=== PATIENT | male | born 1945 | race Hispanic/Latino ===

== ENCOUNTER 2018-09-03 09:55 | Inpatient (IN) | payer MEDICARE ==
[2018-09-03 09:55] VITALS: BMI 26.4
[2018-09-03] MEDS ORDERED: Sodium Chloride 0.9% 1,000 ML IV ONE (10:40)
[2018-09-03] MEDS ORDERED: Piperacillin/Tazobact 3.375 gm 100 ML IV STA (10:54)
[2018-09-03] MEDS ORDERED: Vancomycin 1 GM 1 GM/250 ML BAG IV SCH ×2 (11:00→13:00)
--- NOTE | 2018-09-03 11:01 | C.PDOC ---
History Of Present Illness 73 y/o male with PMHx of HTN, Hep C, alcohol abuse, acute NE, CVA in 2013, presents to the ED with complaint of generalized weakness. Neighbor at bedside states he checks on patient routinely, and today perceived patient to be doing worse so decided to bring him to the ED. Of note, patient has history of CVA with residual right-sided weakness. Patient denies any new focal weakness, numbness, visual changes, or slurred speech. On arrival patient noted to be edematous throughout. He admits to being noncompliant with medications. Otherwise he denies any fevers, cough, chest pain, SOB, dizziness, or syncope/fall. Time Seen by Provider: 09/03/18 10:30 Chief Complaint (Nursing): Weakness/Neurological Deficit History Per: Patient History/Exam Limitations: no limitations Onset/Duration Of Symptoms: Days Current Symptoms Are (Timing): Still Present Past Medical History Reviewed: Historical Data, Nursing Documentation, Vital Signs Vital Signs: Last Vital Signs Temp 98.3 F 09/03/18 10:29 Pulse 124 H 09/03/18 10:29 Resp 11 L 09/03/18 10:29 BP 119/85 09/03/18 10:18 Pulse Ox 98 09/03/18 10:29 - Medical History PMH: Anxiety, CVA, Diabetes (?), Fractures, Hepatitis (C), HTN Denies: Chronic Kidney Disease Other PMH: Alcohol abuse, Acute NE Surgical History: Coronary Stent Other Surgeries: Hx of cardiac catheterization - [facility] Procedures ALCOHOL DETOXIFICATION (02/08/14) DEBRIDEMENT OF NAIL, NAIL BED OR NAIL FOLD (02/17/14) GAIT TRAINING/FUNCTIONAL AMBULATION TREATMENT (01/21/16) HOME MANAGEMENT TREATMENT (01/21/16) OCCUPATIONAL THERAPY (02/17/14) OTHER SPEECH THERAPY (02/17/14) PHYSICAL THERAPY NEC (02/17/14) RECREATIONAL THERAPY (02/17/14) THERAPEUTIC EXERCISE TREATMENT OF MUSCULOSK UP BACK/UE (01/21/16) Family History: States: Unknown Family Hx - Social History Hx Tobacco Use: No Hx Alcohol Use: Yes Hx Substance Use: No - Immunization History Hx Tetanus Toxoid Vaccination: No Hx Influenza Vaccination: No Hx Pneumococcal Vaccination: No Review Of Systems Constitutional: Positive for: Weakness (generalized). Negative for: Fever, Chills Eyes: Negative for: Vision Change Cardiovascular: Negative for: Chest Pain, Palpitations Respiratory: Negative for: Cough, Shortness of Breath Gastrointestinal: Negative for: Nausea, Vomiting, Diarrhea Musculoskeletal: Positive for: Other (+ bilateral extremity edema, chronic in nature) Neurological: Negative for: Weakness (no new focal deficit), Numbness, Change in Speech, Altered Mental Status, Dizziness Physical Exam - Physical Exam Appears: Non-toxic, No Acute Distress Skin: Warm, Other (Skin appears macerated from the waist down) Head: Atraumatic, Normacephalic Eye(s): bilateral: Normal Inspection, PERRL, EOMI Chest: Symmetrical Cardiovascular: Rhythm Regular, No Murmur Respiratory: Normal Breath Sounds, No Rales, No Rhonchi, No Wheezing Gastrointestinal/Abdominal: Soft, No Tenderness, No Distention Back: No Vertebral Tenderness, Other (Decubiti ulcers to sacral area) Extremity: No Tenderness, Capillary Refill (less than 2 sec), Swelling (Edematous throughout), Other (Bilateral lower extremities are edematous and erythematous) Pulses: Left Dorsalis Pedis: Normal, Right Dorsalis Pedis: Normal Neurological/Psych: Oriented x3, Normal Speech ED Course And Treatment - Laboratory Results Result Diagrams: 09/03/18 11:20 09/03/18 11:20 Lab Interpretation: No Acute Changes ECG: Interpreted By De ECG Rhythm: Sinus Tachycardia, L BBB ECG Interpretation: No Changes From Prior Rate From EC O2 Sat by Pulse Oximetry: 98 (RA) Pulse Ox Interpretation: Normal - Radiology CXR: Interpreted by De CXR Interpretation: Yes: No Acute Disease Progress Note: Treated with IVF NSS x 2 liters. Vancomycin and zosyn. Doppler US lower extremity (-) DVT. Treated with metoprolol PO Reassessment Condition: Improved - Physician Consult Information Physician Contacted: Irina Chavez Outcome Of Conversation: admit Medical Decision Making Medical Decision Making: Initial Plan: Septic work-up with Doppler US to rule out DVT Orders placed: --VBG --EKG --CMP --Magneisum --Phosphorous --CBC --PTT/PT --UA --Blood culture --Urine culture --Chest x-ray --Doppler ultrasound B/L LE --IV fluids x 1 bolus --IV Vanco and Zosyn [id number] Spoke with CHRISSY Reaves. Agrees to admit under his service. Disposition Discussed With .: Irina Chavez Doctor Will See Patient In The: Hospital - Disposition Disposition: HOSPITALIZED Disposition Time: 14:00 Condition: STABLE - POA Present On Arrival: None - Clinical Impression Clinical Impression: Cellulitis - PA / EVAPORATOR OPERATOR MOLASSES / Resident Statement MD/DO has reviewed & agrees with the documentation as recorded. - Scribe Statement The provider has reviewed the documentation as recorded by the Scribe (Christina Quigley) All medical record entries made by the Scribe were at my direction and personally dictated by me. I have reviewed the chart and agree that the record accurately reflects my personal performance of the history, physical exam, medical decision making, and the department course for this patient. I have also personally directed, reviewed, and agree with the discharge instructions and disposition. Decision To Admit - Pt Status Changed To: Hospital Disposition Of: Inpatient - Admit Certification Admit to Inpatient:: After my assessment, the patient will require hospitalization for at least two midnights. This is because of the severity of symptoms shown, intensity of services needed, and/or the medical risk in this patient being treated as an outpatient. - InPatient: Physician Admission Certification: I certify that this patient requires 2 or more midnights of care for the following reason:: cellulitis. Sepsis - . Bed Request Type: Regular Admitting Physician: Irina Chavez Patient Diagnosis: Cellulitis
[2018-09-03 11:09] LABS: VENOUS BLOOD GAS BASE EXCESS -3.4 mmol/L (0.0-2.0); VENOUS BLOOD GAS PCO2 32 mmHg (40-60); VENOUS BLOOD GAS PO2 35 mm/Hg (30-55); VENOUS BLOOD PH 7.41 (7.32-7.43)
[2018-09-03 11:30] LABS: BASO # 0.1 K/uL (0.0-0.2); BASO % 0.4 % (0.0-2.0); EOS % 0.3 % (0.0-4.0); HEMOGLOBIN 15.6 g/dL (12.0-18.0); LYMPH # 1.3 K/uL (1.0-4.3); LYMPH % 10.6 % (20.0-40.0); MEAN CELL VOLUME 92.1 fL (80.0-94.0); MEAN CORPUSCULAR HEMOGLOBIN 31.8 pg (27.0-31.0); MEAN CORPUSCULAR HGB CONC 34.5 g/dL (33.0-37.0); MEAN PLATELET VOLUME 9.5 fL (7.2-11.7); NEUT # 10.2 K/uL (1.8-7.0); NEUT % 80.7 % (50.0-75.0); NRBC % 0.1 % (0.0-2.0); RBC 4.91 Mil/uL (4.40-5.90); RED CELL DISTRIBUTION WIDTH 13.1 % (11.5-14.5); WHITE BLOOD COUNT 12.6 K/uL (4.8-10.8)
[2018-09-03 11:34] LABS: INR 1.2; PROTHROMBIN TIME 13.6 SECONDS (9.7-12.2)
[2018-09-03 11:42] LABS: SQUAMOUS EPITHIAL 1 /hpf (0-5); URINE BACTERIA RARE (<OCC); URINE BILIRUBIN NEGATIVE (NEGATIVE); URINE BLOOD NEGATIVE (NEGATIVE); URINE CLARITY Clear (Clear); URINE COLOR Yellow (YELLOW); URINE GLUCOSE (UA) NORMAL (Normal); URINE LEUKOCYTE ESTERASE NEG Leu/uL (Negative); URINE PROTEIN NEGATIVE (NEGATIVE); URINE UROBILINOGEN NORMAL mg/dL (0.2-1.0)
[2018-09-03 12:08] LABS: BLOOD UREA NITROGEN 9 mg/dL (9-20); GFR NON-AFRICAN AMERICAN > 60
[2018-09-03 12:09] LABS: ALB/GLOB RATIO 1.1 (1.0-2.1); ALBUMIN 3.5 g/dL (3.5-5.0); ALT/SGPT 46 U/L (21-72); AST/SGOT 50 U/L (17-59); CALCIUM 8.7 mg/dl (8.6-10.4)
[2018-09-03] MEDS ORDERED: Piperacillin/Tazobact 3.375 gm 100 ML IVPB ONE (12:13)
[2018-09-03] MEDS ORDERED: Vancomycin 1 GM 1 GM/250 ML BAG IVPB ONE (12:13)
--- NOTE | 2018-09-03 14:40 | RAD ---
Date of service: 09/03/2018 HISTORY: Sepsis Patient COMPARISON: 01/17/2016 FINDINGS: LUNGS: No active pulmonary disease. PLEURA: No significant pleural effusion identified, no pneumothorax apparent. CARDIOVASCULAR: Cardiomegaly. No evidence of acute, significant cardiovascular disease. Atherosclerotic calcifications identified primarily aortic arch. OSSEOUS STRUCTURES: No significant abnormalities. Evidence of prior trauma proximal left humerus. VISUALIZED UPPER ABDOMEN: Normal. OTHER FINDINGS: None. IMPRESSION: No active disease. No significant interval change compared to the prior examination(s).
[2018-09-03] MEDS: Sodium Chloride 0.9% 1,000 ML IV SCH (15:13)
--- NOTE | 2018-09-03 15:29 | CP.PCM.PN ---
Subjective - Date & Time of Evaluation Date of Evaluation: 09/03/18 Time of Evaluation: 15:00 - Subjective Subjective: PROGRESS NOTE. Attending: Dr. Chavez. This is a 73 yo male with past medical hx of CVA in 2013, HTN, PR, hepatitis C, alcohol abuse, presenting with chief complaint of swollen and red legs. Pt is a very unreliable historian and was very rambling on interview. He does not have a consistent primary care doctor and was talking about going to the [place] He could not tell me what medications he was taking. He does not think he has taken any medications for over a year. He says he lives alone. He had trouble staying focused and reports that he has been having fevers "off and on" as well as feeling dizzy. He also says he has a hx of alcohol problems and his last drink was 5 days ago. He reports a recent fall. He denies drug use. He denies chest pain and shortness of breath. PMH: CVA, HTN, PR, hep C, alcohol abuse PSH: cardiac stent Allergies: NKDA FH: Parents at a young age. Stroke and PR in family. Home meds: noncompliant Social hx: Former smoker. Hx of alcohol abuse. Last drink [address] ug use. Lives alone. Objective - Vital Signs/Intake and Output Vital Signs (last 24 hours): Temp Pulse Resp BP Pulse Ox 97.4 F L 124 H 18 148/89 99 09/03/18 15:10 09/03/18 15:10 09/03/18 15:10 09/03/18 15:10 09/03/18 15:10 - Medications Medications: Current Medications Aspirin (Aspirin Chewable) 81 mg PO DAILY [facility] Vancomycin/Sodium Chloride (Vancomycin 1 Gm/Ns 200 Ml) 1 gm in 200 mls @ 133.333 mls/hr IVPB Q24H [facility]; Protocol Piperacillin Sod/Tazobactam Sod (Zosyn 2.25 Gm Iv Premix) 2.25 gm in 50 mls @ 100 mls/hr IVPB Q6H [facility]; Protocol Sodium Chloride (Sodium Chloride 0.9%) 1,000 mls @ 100 mls/hr IV .Q10H [facility] Last Admin: 09/03/18 15:13 Dose: 100 mls/hr - Labs Labs: 09/03/18 11:20 09/03/18 11:20 PT 13.6 SECONDS (9.7-12.2) H 09/03/18 11:20 INR 1.2 09/03/18 11:20 APTT 35 SECONDS (21-34) H 09/03/18 11:20 - Constitutional Appears: Unkempt, Chronically Ill - Eye Exam Eye Exam: EOMI - ENT Exam ENT Exam: Mucous Membranes Moist - Neck Exam Neck Exam: Full ROM, Normal Inspection - Respiratory Exam Respiratory Exam: absent: Respiratory Distress - Cardiovascular Exam Cardiovascular Exam: Tachycardia, +S1, +S2 - GI/Abdominal Exam GI & Abdominal Exam: Soft, Normal Bowel Sounds. absent: Tenderness - Exam Exam: absent: NORMAL INSPECTION Additional comments: maceration and erythema along groin bilaterally - Extremities Exam Extremities Exam: Pedal Edema. absent: Full ROM, Normal Inspection Additional comments: bilateral erythema and edema of lower extremities with pvd - Neurological Exam Neurological Exam: Alert, Awake. absent: Oriented x3 Additional comments: positive dysmetria weakness along right side - Skin Skin Exam: absent: Intact, Normal Color Additional comments: positive skin break down Assessment and Plan - Assessment and Plan (Free Text) Assessment: This is a 73 yo male with 1. Swollen legs -dopplers pending -vascular surgery consult. Dr. Garza. recs appreciated. 2. Leukocytosis/fever -ID consult. Dr. Muhammad. recs appreciated. -IV fluids -vancomycin IV -zosyn IV -procalcitonin -CXR pending 3. Fall -cpk -head ct pending 2. Hx of HTN -cardiology consult. 3. tachycardia -1 x dose of metoprolol in ER -EKG -trops x 3 -BNP -echo pending 4. hx of CVA -neurology consult. Dr. Sommer. recs appreciated. -PT/OT 5. skin breakdown/maceration -wound care -may need ketoconazole cream 6. hx of alcohol abuse -[facility] protocol -psychiatry consult. Dr. Collins. recs appreciated. -seizure precautions -aspiration precautions -fall precautions -thiamine, folate, mv daily -will check b12 and folate levels 7. hyponatremia -serum osmo -urine osmo -urine sodium pending 8. obesity -hgb a1c -lipid panel 7. GI/DVT ppx -protonix [address] Chavez.
--- NOTE | 2018-09-03 15:55 | VASCLAB ---
Date of service: 09/03/2018 PROCEDURE: Lower Extremity Venous Duplex Exam. HISTORY: edema PRIORS: None. TECHNIQUE: Bilateral common femoral, femoral, popliteal and posterior tibial, peroneal and great saphenous veins were evaluated. Flow was assessed with color Doppler, compressibility, assessment of phasic flow and augmentation response. Report prepared by SAVANNA Christensen FINDINGS: RIGHT: 1. Common Femoral Vein: 1.1. Compressibility - Fully compressible: Thrombus - None : Flow - Phasic: Augmentation -Normal: Reflux - None. 2. Femoral Vein: 2.1. Compressibility - Fully compressible: Thrombus - None : Flow - Phasic: Augmentation -Normal: Reflux - None. 3. Popliteal Vein: 3.1. Compressibility - Fully compressible: Thrombus - None : Flow - Phasic: Augmentation -Normal: Reflux - None. 4. Posterior Tibial Vein: 4.1. Compressibility - Fully compressible: Thrombus - None: Flow - Phasic: Augmentation -Normal: Reflux - None. 5. Peroneal Vein: 5.1. Compressibility - Fully compressible: Thrombus - None: Flow - Phasic: Augmentation -Normal: Reflux - None. 6. Great Saphenous Vein: 6.1. Compressibility - Fully compressible: Thrombus - None: Flow - Phasic: Augmentation - Normal: Reflux - None. LEFT: 1. Common Femoral Vein: 1.1. Compressibility - Fully compressible: Thrombus - None: Flow - Phasic: Augmentation -Normal: Reflux - None. 2. Femoral Vein: 2.1. Compressibility - Fully compressible: Thrombus - None: Flow - Phasic: Augmentation -Normal: Reflux - None. 3. Popliteal Vein: 3.1. Compressibility - Fully compressible: Thrombus - None : Flow - Phasic: Augmentation -Normal: Reflux - None. 4. Posterior Tibial Vein: 4.1. Compressibility - Fully compressible: Thrombus - None: Flow - Phasic: Augmentation -Normal: Reflux - None. 5. Peroneal Vein: 5.1. Compressibility - Fully compressible: Thrombus - None: Flow - Phasic: Augmentation -Normal: Reflux - None. 6. Great Saphenous Vein: 6.1. Compressibility - Fully compressible: Thrombus - None: Flow - Phasic: Augmentation - Normal: Reflux - None. OTHER FINDINGS: Right: None significant. Left: None significant. IMPRESSION: Right: No evidence of deep or superficial vein thrombosis of the right lower extremity. Normal valve function noted of the right side. Left: No evidence of deep or superficial vein thrombosis of the left lower extremity. Normal valve function noted of the left side.
--- NOTE | 2018-09-03 16:43 | CT ---
Date of service: 09/03/2018 PROCEDURE: CT HEAD WITHOUT CONTRAST. HISTORY: hx of fall COMPARISON: Noncontrast head CT performed 02/11/14 TECHNIQUE: Axial computed tomography images were obtained through the head/brain without intravenous contrast. Radiation dose: Total exam DLP = 1222.46 mGy-cm. This CT exam was performed using one or more of the following dose reduction techniques: Automated exposure control, adjustment of the mA and/or kV according to patient size, and/or use of iterative reconstruction technique. FINDINGS: Streak artifact limits evaluation of the skull base. HEMORRHAGE: No intracranial hemorrhage. BRAIN: Diffuse atrophy with prominence of the ventricles and sulci noted. No mass effect or edema. Intracranial atherosclerosis. Scattered periventricular and subcortical white matter hypodensities, which are nonspecific, but often seen with chronic microvascular ischemic disease. Hypodense region consistent with encephalomalacia at the level of the medial left temporal lobe. Please note that MRI with diffusion imaging is more sensitive in the detection of acute ischemic event. VENTRICLES: Cavum septum pellucidum, anatomic variant. No hydrocephalus. CALVARIUM: Unremarkable. PARANASAL SINUSES: Mucosal polyp/retention cyst within the left maxillary sinus. Otherwise grossly unremarkable. MASTOID AIR CELLS: Unremarkable as visualized. No inflammatory changes. OTHER FINDINGS: None. IMPRESSION: Moderate nonspecific white matter changes. Generalized atrophy. Hypodense region consistent with encephalomalacia at the level of the medial left temporal lobe.
--- NOTE | 2018-09-03 17:33 | CP.PCM.CON ---
History of Present Illness - History of Present Illness History of Present Illness: 73 yo male with chief complaint of swollen legs. Referred for ID eval of cellulitis lower extremities denies fever chills + gen weakness fatigue PMH: CVA, HTN, NE, hep C, alcohol abuse PSH: cardiac stent Allergies: NKDA FH: Stroke and NE Social hx: ex smoker. + ETOH abuse Review of Systems - Constitutional Constitutional: As Per HPI - EENT Eyes: absent: As Per HPI, Blind Spots, Blurred Vision, Change in Vision, Decrea sed Night Vision, Diplopia, Discharge, Dry Eye, Exophthalmos, Floaters, Irritation, Itchy Eyes, Loss of Peripheral Vision, Pain, Photophobia, Requires Corrective Lenses, Sees Flashes, Spots in Vision, Tunnel Vision, Other Visual Disturbances, Loss of Vision, Other Ears: absent: As Per HPI, Decreased Hearing, Ear Discharge, Ear Pain, Tinnitus, Abnormal Hearing, Disequilibrium, Dizziness, Other Nose/Mouth/Throat: absent: As Per HPI, Epistaxis, Nasal Congestion, Nasal Discharge, Nasal Obstruction, Nasal Trauma, Nose Pain, Post Nasal Drip, Sinus Pa in, Sinus Pressure, Bleeding Gums, Change in Voice, Dental Pain, Dry Mouth, Dysphagia, Halitosis, Hoarsness, Lip Swelling, Mouth Lesions, Mouth Pain, Odynophagia, Sore Throat, Throat Swelling, Tongue Swelling, Facial Pain, Neck Pain, Neck Mass, Other - Cardiovascular Cardiovascular: As Per HPI - Respiratory Respiratory: As Per HPI, Cough. absent: Hemoptysis - Gastrointestinal Gastrointestinal: absent: As Per HPI, Abdominal Pain, Belching, Bloating, Change in Bowel Habits, Change in Stool Character, Coffee Ground Emesis, Constipation, Cramping, Diarrhea, Dyspepsia, Dysphagia, Early Satiety, Excessive Flatus, Fecal Incontinence, Heartburn, Hematemesis, Hematochezia, Loose Stools, Melena, Nausea, Odynophagia, Temesmus, Vomiting, Other - Genitourinary Genitourinary: absent: As Per HPI, Change in Urinary Stream, Difficulty Urinating, Dysuria, Flank Pain, Hematuria, Pyuria, Nocturia, Urinary Incontinence, Urinary Frequency, Urinary Hesitance, Urinary Urgency, Voiding Freq/Small Amts, Freq UTI, Hx Renal/Bladder Calculi, Hx /Renal Surgery, Bladder Distension, Other - Musculoskeletal Musculoskeletal: As Per HPI - Integumentary Integumentary: As Per HPI, Dry Skin, Skin Pain, Wounds - Neurological Neurological: As Per HPI, Abnormal Gait, Focal Weakness - Psychiatric Psychiatric: absent: As Per HPI, Abnormal Sleep Pattern, Anhedonia, Anxiety, Auditory Hallucinations, Behavioral Changes, Change in Appetite, Change in Libido, Confusion, Depression, Difficulty Concentrating, Hallucinations, Homicidal Ideation, Hopelessness, Irritability, Memory Loss, Mood Swings, Panic Attacks, Paranoia, Suicidal Ideation, Visual Hallucinations, Tactile Hallucinations, Other - Endocrine Endocrine: absent: As Per HPI, Change in Body Appearance, Change in Libido, Cold Intolorance, Deepening of Voice, Excessive Sweating, Fatigue, Flushing, Heat Intolorance, Increase in Ring/Shoe/Hat Size, Palpitations, Polydipsia, Polyphagia, Polyuria, Other - Hematologic/Lymphatic Hematologic: absent: As Per HPI, Easy Bleeding, Easy Bruising, Lymphadenopathy, Other Past Patient History - Infectious Disease Hx of Infectious Diseases: None - Tetanus Immunizations Tetanus Immunization: Unknown - Past Medical History & Family History Past Medical History?: No - Past Social History Smoking Status: Former Smoker - CARDIAC Hx Hypertension: Yes - PULMONARY Hx Respiratory Disorders: No Other/Comment: FORMER SMOKER - NEUROLOGICAL HX Cerebrovascular Accident: Yes - HEENT Hx HEENT Problems: No - RENAL Hx Chronic Kidney Disease: No - ENDOCRINE/METABOLIC Hx Diabetes Mellitus Type 2: Yes (?) - HEMATOLOGICAL/ONCOLOGICAL Hx Blood Disorders: No - INTEGUMENTARY Hx Dermatological Problems: No - MUSCULOSKELETAL/RHEUMATOLOGICAL Hx Fractures: Yes - GASTROINTESTINAL Hx Gastrointestinal Disorders: No - GENITOURINARY/GYNECOLOGICAL Hx Genitourinary Disorders: No - PSYCHIATRIC Hx Anxiety: Yes Hx Substance Use: No - SURGICAL HISTORY Hx Coronary Stent: Yes - ANESTHESIA Hx Anesthesia: Yes Hx Anesthesia Reactions: No Meds Allergies/Adverse Reactions: Allergies Allergy/AdvReac Type Severity Reaction Status Date / Time No Known Allergies Allergy Verified 09/03/18 11:27 - Medications Medications: Current Medications Aspirin (Aspirin Chewable) 81 mg PO DAILY [facility] Folic Acid (Folic Acid) 1 mg PO DAILY [facility] Vancomycin/Sodium Chloride (Vancomycin 1 Gm/Ns 200 Ml) 1 gm in 200 mls @ 133.333 mls/hr IVPB Q24H [facility]; Protocol Piperacillin Sod/Tazobactam Sod (Zosyn 2.25 Gm Iv Premix) 2.25 gm in 50 mls @ 100 mls/hr IVPB Q6H [facility]; Protocol Sodium Chloride (Sodium Chloride 0.9%) 1,000 mls @ 100 mls/hr IV .Q10H [facility] Last Admin: 09/03/18 15:13 Dose: 100 mls/hr Lisinopril (Zestril) 20 mg PO BID [facility] Metoprolol Tartrate (Lopressor) 50 mg PO BID [facility] Multivitamins (Hexavitamin) 1 tab PO DAILY [facility] Pantoprazole Sodium (Protonix Inj) 40 mg IVP DAILY [facility] Rosuvastatin Calcium (Crestor) 10 mg PO HS [facility] Thiamine HCl (Vitamin B1 Tab) 100 mg PO DAILY [facility] Physical Exam - Constitutional Appears: Non-toxic, Chronically Ill - Head Exam Head Exam: ATRAUMATIC, NORMAL INSPECTION, NORMOCEPHALIC - Eye Exam Eye Exam: PERRL. absent: Scleral icterus - ENT Exam ENT Exam: Mucous Membranes Dry, Normal External Ear Exam - Neck Exam Neck exam: Negative for: Lymphadenopathy, Thyromegaly - Respiratory Exam Respiratory Exam: Decreased Breath Sounds, Clear to Auscultation Bilateral - Cardiovascular Exam Cardiovascular Exam: REGULAR RHYTHM, +S1, +S2 - GI/Abdominal Exam GI & Abdominal Exam: Diminished Bowel Sounds, Soft. absent: Distended, Guarding, Rebound, Rigid, Tenderness - Rectal Exam Rectal Exam: Deferred - Exam Exam: NORMAL INSPECTION - Extremities Exam Extremities exam: Positive for: pedal edema, tenderness, pedal pulses present. Negative for: calf tenderness, normal inspection - Back Exam Back exam: absent: CVA tenderness (L), CVA tenderness (R), paraspinal tenderness - Neurological Exam Neurological exam: Alert, CN II-XII Intact, Motor Sensory Deficit, Oriented x3, Reflexes Normal Additional comments: right side weakness/ contracted RUE - Psychiatric Exam Psychiatric exam: Depressed - Skin Skin Exam: Dry Results - Vital Signs Recent Vital Signs: Last Vital Signs Temp 97.4 F L 09/03/18 15:10 Pulse 124 H 09/03/18 15:10 Resp 18 09/03/18 15:10 BP 148/89 09/03/18 15:10 Pulse Ox 99 09/03/18 15:10 - Labs Result Diagrams: 09/03/18 11:20 09/03/18 11:20 Labs: Laboratory Results - last 24 hr 09/03/18 09/03/18 09/03/18 11:05 11:20 11:20 WBC 12.6 H RBC 4.91 Hgb 15.6 D Hct 45.2 MCV 92.1 D MCH 31.8 H MCHC 34.5 RDW 13.1 Plt Count 263 MPV 9.5 Neut % (Auto) 80.7 H Lymph % (Auto) 10.6 L [place] % (Auto) 8.0 Eos % (Auto) 0.3 Baso % (Auto) 0.4 Neut # (Auto) 10.2 H Lymph # (Auto) 1.3 [place] # (Auto) 1.0 H Eos # (Auto) 0.0 Baso # (Auto) 0.1 PT 13.6 H INR 1.2 APTT 35 H pO2 35 VBG pH 7.41 VBG pCO2 32 L VBG HCO3 21.5 VBG Total CO2 21.3 L VBG O2 Sat (Calc) 74.9 H VBG Base Excess -3.4 L VBG Potassium 4.2 Sodium 123.0 L Chloride 91.0 L Glucose 104 Lactate 2.3 H Potassium Carbon Dioxide Anion Gap BUN Creatinine Est GFR ( Amer) Est GFR (Non-Af Amer) Random Glucose Calcium Phosphorus Magnesium Total Bilirubin AST ALT Alkaline Phosphatase Total Protein Albumin Globulin Albumin/Globulin Ratio Venous Blood Potassium 4.2 Urine Color Urine Clarity Urine pH Ur Specific [place] Urine Protein Urine Glucose (UA) Urine Ketones Urine Blood Urine Nitrate Urine Bilirubin Urine Urobilinogen Ur Leukocyte Esterase Urine WBC (Auto) Urine RBC (Auto) Ur Squamous Epith Cells Urine Bacteria 09/03/18 09/03/18 11:20 11:20 WBC RBC Hgb Hct MCV MCH MCHC RDW Plt Count MPV Neut % (Auto) Lymph % (Auto) [place] % (Auto) Eos % (Auto) Baso % (Auto) Neut # (Auto) Lymph # (Auto) [place] # (Auto) Eos # (Auto) Baso # (Auto) PT INR APTT pO2 VBG pH VBG pCO2 VBG HCO3 VBG Total CO2 VBG O2 Sat (Calc) VBG Base Excess VBG Potassium Sodium 125 L Chloride 92 L Glucose Lactate Potassium 4.5 Carbon Dioxide 21 L Anion Gap 17 BUN 9 Creatinine 0.5 L Est GFR ( Amer) > 60 Est GFR (Non-Af Amer) > 60 Random Glucose 105 Calcium 8.7 Phosphorus 3.3 Magnesium 1.8 Total Bilirubin 1.1 AST 50 ALT 46 Alkaline Phosphatase 116 Total Protein 6.6 Albumin 3.5 Globulin 3.1 Albumin/Globulin Ratio 1.1 Venous Blood Potassium Urine Color Yellow Urine Clarity Clear Urine pH 6.0 Ur Specific [place] 1.010 Urine Protein Negative Urine Glucose (UA) Normal Urine Ketones Negative Urine Blood Negative Urine Nitrate Negative Urine Bilirubin Negative Urine Urobilinogen Normal Ur Leukocyte Esterase Neg Urine WBC (Auto) 1 Urine RBC (Auto) < 1 Ur Squamous Epith Cells 1 Urine Bacteria Rare Assessment & Plan (1) Cellulitis Status: Acute (2) CAD (coronary artery disease) Status: Chronic Priority: High Onset Date: 02/08/14 (3) Dyslipidemia Status: Chronic Priority: Medium Onset Date: 02/07/14 (4) Hemiparesis affecting right side as late effect of cerebrovascular accident Status: Chronic (5) Hep C w/o coma, chronic Status: Chronic Priority: Medium Onset Date: 02/12/14 (6) Hypertension Status: Chronic Priority: Medium - Assessment and Plan (Free Text) Assessment: agree with empiric IV rx for cellulitis will monitor levels may need vascular input
[2018-09-03 17:48] LABS: HDL CHOLESTEROL 47 mg/dL (30-70)
[2018-09-03 17:58] LABS: LDL CHOLESTEROL 37 mg/dL (0-129)
[2018-09-03 18:00] LABS: B-TYPE NATRIURETIC PEPTIDE 2410 pg/mL (0-900)
--- NOTE | 2018-09-03 18:06 | CP.PCM.CON ---
History of Present Illness - History of Present Illness History of Present Illness: I was asked to see patient by Dr Chavez. Patient was seen 09/03/18 1740 Patient is a 73 year old male with HTN, CAD s/p PCI, hypercholesterolemia who presents with lower extremity edema. The patient developed selling about 3 weeks ago. He states the swelling got progressivley worse. He denies chest pain and is comfortable at rest. He was found to be tachycardic. EKG reveals LBBB Review of Systems - Constitutional Constitutional: absent: As Per HPI, Anorexia, Chills, Daytime Sleepiness, Excessive Sweating, Fatigue, Fever, Frequent Falls, Headache, Increased Appetite, Lethargy, Malaise, Night Sweats, Snoring, Sleep Apnea, Weight Gain, Weight Loss, Weakness, Other - EENT Eyes: absent: As Per HPI, Blind Spots, Blurred Vision, Change in Vision, Decreased Night Vision, Diplopia, Discharge, Dry Eye, Exophthalmos, Floaters, Irritation, Itchy Eyes, Loss of Peripheral Vision, Pain, Photophobia, Requires Corrective Lenses, Sees Flashes, Spots in Vision, Tunnel Vision, Other Visual Disturbances, Loss of Vision, Other Ears: absent: As Per HPI, Decreased Hearing, Ear Discharge, Ear Pain, Tinnitus, Abnormal Hearing, Disequilibrium, Dizziness, Other Nose/Mouth/Throat: absent: As Per HPI, Epistaxis, Nasal Congestion, Nasal Discharge, Nasal Obstruction, Nasal Trauma, Nose Pain, Post Nasal Drip, Sinus Pain, Sinus Pressure, Bleeding Gums, Change in Voice, Dental Pain, Dry Mouth, Dysphagia, Halitosis, Hoarsness, Lip Swelling, Mouth Lesions, Mouth Pain, Odynophagia, Sore Throat, Throat Swelling, Tongue Swelling, Facial Pain, Neck Pain, Neck Mass, Other - Cardiovascular Cardiovascular: Leg Edema, Pedal Edema, Rapid Heart Rate. absent: Chest Pain, Chest Pain at Rest, Dyspnea, Palpitations - Respiratory Respiratory: absent: As Per HPI, Cough, Dyspnea, Hemoptysis, Dyspnea on Exertion, Wheezing, Snoring, Stridor, Pain on Inspiration, Chest Congestion, Excessive Mucous Production, Change in Mucous Color, Pain with Coughing, Other - Gastrointestinal Gastrointestinal: absent: As Per HPI, Abdominal Pain, Belching, Bloating, Change in Bowel Habits, Change in Stool Character, Coffee Ground Emesis, Constipation, Cramping, Diarrhea, Dyspepsia, Dysphagia, Early Satiety, Excessive Flatus, Fecal Incontinence, Heartburn, Hematemesis, Hematochezia, Loose Stools, Melena, Nausea, Odynophagia, Temesmus, Vomiting, Other - Genitourinary Genitourinary: absent: As Per HPI, Change in Urinary Stream, Difficulty Urinating, Dysuria, Flank Pain, Hematuria, Pyuria, Nocturia, Urinary Incontinence, Urinary Frequency, Urinary Hesitance, Urinary Urgency, Voiding Freq/Small Amts, Freq UTI, Hx Renal/Bladder Calculi, Hx /Renal Surgery, Bladder Distension, Other - Musculoskeletal Musculoskeletal: absent: As Per HPI, Abnormal Gait, Arthralgias, Atrophy, Back Pain, Deformity, Joint Swelling, Limited Range of Motion, Loss of Height, Muscle Cramps, Muscle Weakness, Myalgias, Neck Pain, Numbness, Radiating Pain into Limb, Stiffness, Tingling, Other - Integumentary Integumentary: absent: As Per HPI, Acne, Alopecia, Bleeding Lesions, Change in Hair, Change in Nails, Change in Pigmentation, Changing Lesions, Dry Skin, Erythema, Furuncle, Hirsutism, Lesions, New Lesions, Non-Healing Lesions, Photosensitivity, Pruritus, Rash, Skin Pain, Skin Ulcer, Sores, Striae, Swelling, Unusual Bruising, Wounds, Jaundice, Other - Neurological Neurological: absent: As Per HPI, Abnormal Gait, Abnormal Hearing, Abnormal Movements, Abnormal Speech, Behavioral Changes, Burning Sensations, Confusion, Convulsions, Disequilibrium, Dizziness, Numbness, Focal Weakness, Frequent Falls, Headaches, Lack of Coordination, Loss of Vision, Memory Loss, Paresthesias, Radicular Pain, Restless Legs, Sensory Deficit, Syncope, Tingling, Tremor, Vertigo, Weakness, Other Visual Disturbances, Other - Psychiatric Psychiatric: absent: As Per HPI, Abnormal Sleep Pattern, Anhedonia, Anxiety, Auditory Hallucinations, Behavioral Changes, Change in Appetite, Change in Libido, Confusion, Depression, Difficulty Concentrating, Hallucinations, Homicidal Ideation, Hopelessness, Irritability, Memory Loss, Mood Swings, Panic Attacks, Paranoia, Suicidal Ideation, Visual Hallucinations, Tactile Hallucina tions, Other - Endocrine Endocrine: absent: As Per HPI, Change in Body Appearance, Change in Libido, Cold Intolorance, Deepening of Voice, Excessive Sweating, Fatigue, Flushing, Heat Intolorance, Increase in Ring/Shoe/Hat Size, Palpitations, Polydipsia, Polypha christi, Polyuria, Other - Hematologic/Lymphatic Hematologic: absent: As Per HPI, Easy Bleeding, Easy Bruising, Lymphadenopathy, Other Past Patient History - Infectious Disease Hx of Infectious Diseases: None - Tetanus Immunizations Tetanus Immunization: Unknown - Past Medical History & Family History Past Medical History?: No - Past Social History Smoking Status: Former Smoker - CARDIAC Hx Hypertension: Yes - PULMONARY Hx Respiratory Disorders: No Other/Comment: FORMER SMOKER - NEUROLOGICAL HX Cerebrovascular Accident: Yes - HEENT Hx HEENT Problems: No - RENAL Hx Chronic Kidney Disease: No - ENDOCRINE/METABOLIC Hx Diabetes Mellitus Type 2: Yes (?) - HEMATOLOGICAL/ONCOLOGICAL Hx Blood Disorders: No - INTEGUMENTARY Hx Dermatological Problems: No - MUSCULOSKELETAL/RHEUMATOLOGICAL Hx Fractures: Yes - GASTROINTESTINAL Hx Gastrointestinal Disorders: No - GENITOURINARY/GYNECOLOGICAL Hx Genitourinary Disorders: No - PSYCHIATRIC Hx Anxiety: Yes Hx Substance Use: No - SURGICAL HISTORY Hx Coronary Stent: Yes - ANESTHESIA Hx Anesthesia: Yes Hx Anesthesia Reactions: No Meds Allergies/Adverse Reactions: Allergies Allergy/AdvReac Type Severity Reaction Status Date / Time No Known Allergies Allergy Verified 09/03/18 11:27 - Medications Medications: Current Medications Aspirin (Aspirin Chewable) 81 mg PO DAILY [facility] Folic Acid (Folic Acid) 1 mg PO DAILY [facility] Vancomycin/Sodium Chloride (Vancomycin 1 Gm/Ns 200 Ml) 1 gm in 200 mls @ 133.333 mls/hr IVPB Q24H [facility]; Protocol Piperacillin Sod/Tazobactam Sod (Zosyn 2.25 Gm Iv Premix) 2.25 gm in 50 mls @ 100 mls/hr IVPB Q6H [facility]; Protocol Sodium Chloride (Sodium Chloride 0.9%) 1,000 mls @ 100 mls/hr IV .Q10H [facility] Last Admin: 09/03/18 15:13 Dose: 100 mls/hr Lisinopril (Zestril) 20 mg PO BID [facility] Last Admin: 09/03/18 17:52 Dose: Not Given Metoprolol Tartrate (Lopressor) 50 mg PO BID [facility] Last Admin: 09/03/18 17:51 Dose: Not Given Multivitamins (Hexavitamin) 1 tab PO DAILY [facility] Pantoprazole Sodium (Protonix Inj) 40 mg IVP DAILY [facility] Rosuvastatin Calcium (Crestor) 10 mg PO HS [facility] Thiamine HCl (Vitamin B1 Tab) 100 mg PO DAILY [facility] Physical Exam - Constitutional Appears: Non-toxic - Head Exam Head Exam: NORMAL INSPECTION - Eye Exam Eye Exam: Normal appearance - ENT Exam ENT Exam: Mucous Membranes Moist, Normal Exam, Normal Oropharynx - Neck Exam Neck exam: Positive for: Full Rom, Normal Inspection. Negative for: Lymphadenopathy, Tenderness, Thyromegaly - Respiratory Exam Respiratory Exam: Clear to Auscultation Bilateral, NORMAL BREATHING PATTERN - Cardiovascular Exam Cardiovascular Exam: Tachycardia, REGULAR RHYTHM - GI/Abdominal Exam GI & Abdominal Exam: Normal Bowel Sounds, Soft. absent: Distended, Organomegaly, Rebound, Rigid, Tenderness - Rectal Exam Rectal Exam: Deferred - Extremities Exam Extremities exam: Positive for: pedal edema, pedal pulses present - Back Exam Back exam: NORMAL INSPECTION - Neurological Exam Neurological exam: Alert, Oriented x3 - Psychiatric Exam Psychiatric exam: Normal Affect - Skin Skin Exam: Normal Color Results - Vital Signs Recent Vital Signs: Last Vital Signs Temp 97.4 F L 09/03/18 15:10 Pulse 124 H 09/03/18 15:10 Resp 18 09/03/18 15:10 BP 148/89 09/03/18 15:10 Pulse Ox 99 09/03/18 15:10 - Labs Result Diagrams: 09/03/18 11:20 09/03/18 11:20 Labs: Laboratory Results - last 24 hr 09/03/18 09/03/18 09/03/18 11:05 11:20 11:20 WBC 12.6 H RBC 4.91 Hgb 15.6 D Hct 45.2 MCV 92.1 D MCH 31.8 H MCHC 34.5 RDW 13.1 Plt Count 263 MPV 9.5 Neut % (Auto) 80.7 H Lymph % (Auto) 10.6 L [place] % (Auto) 8.0 Eos % (Auto) 0.3 Baso % (Auto) 0.4 Neut # (Auto) 10.2 H Lymph # (Auto) 1.3 [place] # (Auto) 1.0 H Eos # (Auto) 0.0 Baso # (Auto) 0.1 PT 13.6 H INR 1.2 APTT 35 H pO2 35 VBG pH 7.41 VBG pCO2 32 L VBG HCO3 21.5 VBG Total CO2 21.3 L VBG O2 Sat (Calc) 74.9 H VBG Base Excess -3.4 L VBG Potassium 4.2 Sodium 123.0 L Chloride 91.0 L Glucose 104 Lactate 2.3 H Potassium Carbon Dioxide Anion Gap BUN Creatinine Est GFR ( Amer) Est GFR (Non-Af Amer) Random Glucose Serum Osmolality Lactic Acid Calcium Phosphorus Magnesium Total Bilirubin AST ALT Alkaline Phosphatase Total Creatine Kinase Troponin I NT-Pro-B Natriuret Pep Total Protein Albumin Globulin Albumin/Globulin Ratio Triglycerides Cholesterol LDL Cholesterol Direct HDL Cholesterol Venous Blood Potassium 4.2 Urine Color Urine Clarity Urine pH Ur Specific [place] Urine Protein Urine Glucose (UA) Urine Ketones Urine Blood Urine Nitrate Urine Bilirubin Urine Urobilinogen Ur Leukocyte Esterase Urine WBC (Auto) Urine RBC (Auto) Ur Squamous Epith Cells Urine Bacteria Alcohol, Quantitative 09/03/18 09/03/18 09/03/18 11:20 11:20 17:15 WBC RBC Hgb Hct MCV MCH MCHC RDW Plt Count MPV Neut % (Auto) Lymph % (Auto) [place] % (Auto) Eos % (Auto) Baso % (Auto) Neut # (Auto) Lymph # (Auto) [place] # (Auto) Eos # (Auto) Baso # (Auto) PT INR APTT pO2 VBG pH VBG pCO2 VBG HCO3 VBG Total CO2 VBG O2 Sat (Calc) VBG Base Excess VBG Potassium Sodium 125 L Chloride 92 L Glucose Lactate Potassium 4.5 Carbon Dioxide 21 L Anion Gap 17 BUN 9 Creatinine 0.5 L Est GFR ( Amer) > 60 Est GFR (Non-Af Amer) > 60 Random Glucose 105 Serum Osmolality Lactic Acid 1.8 Calcium 8.7 Phosphorus 3.3 Magnesium 1.8 Total Bilirubin 1.1 AST 50 ALT 46 Alkaline Phosphatase 116 Total Creatine Kinase Troponin I NT-Pro-B Natriuret Pep Total Protein 6.6 Albumin 3.5 Globulin 3.1 Albumin/Globulin Ratio 1.1 Triglycerides Cholesterol LDL Cholesterol Direct HDL Cholesterol Venous Blood Potassium Urine Color Yellow Urine Clarity Clear Urine pH 6.0 Ur Specific [place] 1.010 Urine Protein Negative Urine Glucose (UA) Normal Urine Ketones Negative Urine Blood Negative Urine Nitrate Negative Urine Bilirubin Negative Urine Urobilinogen Normal Ur Leukocyte Esterase Neg Urine WBC (Auto) 1 Urine RBC (Auto) < 1 Ur Squamous Epith Cells 1 Urine Bacteria Rare Alcohol, Quantitative 09/03/18 09/03/18 09/03/18 17:15 17:15 17:15 WBC RBC Hgb Hct MCV MCH MCHC RDW Plt Count MPV Neut % (Auto) Lymph % (Auto) [place] % (Auto) Eos % (Auto) Baso % (Auto) Neut # (Auto) Lymph # (Auto) [place] # (Auto) Eos # (Auto) Baso # (Auto) PT INR APTT pO2 VBG pH VBG pCO2 VBG HCO3 VBG Total CO2 VBG O2 Sat (Calc) VBG Base Excess VBG Potassium Sodium Chloride Glucose Lactate Potassium Carbon Dioxide Anion Gap BUN Creatinine Est GFR ( Amer) Est GFR (Non-Af Amer) Random Glucose Serum Osmolality 266 L Lactic Acid Calcium Phosphorus Magnesium Total Bilirubin AST ALT Alkaline Phosphatase Total Creatine Kinase 72 Troponin I 0.0200 NT-Pro-B Natriuret Pep 2410 H Total Protein Albumin Globulin Albumin/Globulin Ratio Triglycerides 50 Cholesterol 79 LDL Cholesterol Direct 37 HDL Cholesterol 47 Venous Blood Potassium Urine Color Urine Clarity Urine pH Ur Specific [place] Urine Protein Urine Glucose (UA) Urine Ketones Urine Blood Urine Nitrate Urine Bilirubin Urine Urobilinogen Ur Leukocyte Esterase Urine WBC (Auto) Urine RBC (Auto) Ur Squamous Epith Cells Urine Bacteria Alcohol, Quantitative < 10 - EKG Data EKG Interpreted by: Myself EKG shows normal: Sinus rhythm Assessment & Plan (1) Edema Assessment and Plan: unclear etiology. recommend echocardiogram to assess ventricular function as well as right sided pressure Status: Acute (2) LBBB (left bundle branch block) Assessment and Plan: likely chronic Status: Acute (3) CAD (coronary artery disease) Assessment and Plan: remote history of CAD. medical therapy Status: Chronic Priority: High Onset Date: 02/08/14 (4) Dyslipidemia Assessment and Plan: statin therapy Status: Chronic Priority: Medium Onset Date: 02/07/14 (5) Hypertension Assessment and Plan: continue metroprolol for blood pressure control Status: Chronic Priority: Medium
[2018-09-03 18:22] LABS: HEPATITIS B SURFACE AG Negative (NEGATIVE)
[2018-09-03 18:28] LABS: HEPATITIS A IGM NEGATIVE (NEGATIVE); HEPATITIS B CORE AB NEGATIVE (NEGATIVE)
[2018-09-03 18:56] LABS: FOLATE > 20.0 ng/mL
[2018-09-03] MEDS: Piperacill/Tazo 2.25gm in Dex 2.25 GM/50 ML BAG IVPB SCH (19:39)
--- NOTE | 2018-09-03 19:39 | CP.PCM.CON ---
History of Present Illness - History of Present Illness History of Present Illness: Vascular Surgery Consult For Dr. Tang This 73M with a PMH of CVA, HTN, [place], HCV, and ETOH abuse, was admitted to [facility] on 09/03 generalized weakness. Surgery in currently being consulted for swelling, and erythema of the bilateral lower extremities. He states that the swelling began 3 weeks ago and gradually became worse. Of note, the pts has residual right sided weakness from a previous CVA. He currently denies, hea dache, vision changes, vertigo, slurred speech, chest pain, shortness of breath, abdominal pain, nausea, vomit, diarrhea, and numbness in the extremities. PMHx:CVA, HTN, [place], HCV, and ETOH abuse PSH: Cardiac Stent Social: Alcoholic , former smoker Review of Systems - Constitutional Constitutional: Chills. absent: Anorexia, Fever - Cardiovascular Cardiovascular: absent: Chest Pain, Dyspnea - Respiratory Respiratory: absent: Dyspnea, Dyspnea on Exertion - Integumentary Integumentary: Dry Skin, Erythema, Non-Healing Lesions, Swelling - Neurological Neurological: Focal Weakness Past Patient History - Infectious Disease Hx of Infectious Diseases: None - Tetanus Immunizations Tetanus Immunization: Unknown - Past Medical History & Family History Past Medical History?: No - Past Social History Smoking Status: Former Smoker - CARDIAC Hx Hypertension: Yes - PULMONARY Hx Respiratory Disorders: No Other/Comment: FORMER SMOKER - NEUROLOGICAL HX Cerebrovascular Accident: Yes - HEENT Hx HEENT Problems: No - RENAL Hx Chronic Kidney Disease: No - ENDOCRINE/METABOLIC Hx Diabetes Mellitus Type 2: Yes (?) - HEMATOLOGICAL/ONCOLOGICAL Hx Blood Disorders: No - INTEGUMENTARY Hx Dermatological Problems: No - MUSCULOSKELETAL/RHEUMATOLOGICAL Hx Fractures: Yes - GASTROINTESTINAL Hx Gastrointestinal Disorders: No - GENITOURINARY/GYNECOLOGICAL Hx Genitourinary Disorders: No - PSYCHIATRIC Hx Anxiety: Yes Hx Substance Use: No - SURGICAL HISTORY Hx Coronary Stent: Yes - ANESTHESIA Hx Anesthesia: Yes Hx Anesthesia Reactions: No Meds Allergies/Adverse Reactions: Allergies Allergy/AdvReac Type Severity Reaction Status Date / Time No Known Allergies Allergy Verified 09/03/18 11:27 - Medications Medications: Current Medications Aspirin (Aspirin Chewable) 81 mg PO DAILY [facility] Folic Acid (Folic Acid) 1 mg PO DAILY [facility] Vancomycin/Sodium Chloride (Vancomycin 1 Gm/Ns 200 Ml) 1 gm in 200 mls @ 133.333 mls/hr IVPB Q24H [facility]; Protocol Piperacillin Sod/Tazobactam Sod (Zosyn 2.25 Gm Iv Premix) 2.25 gm in 50 mls @ 100 mls/hr IVPB Q6H [facility]; Protocol Sodium Chloride (Sodium Chloride 0.9%) 1,000 mls @ 100 mls/hr IV .Q10H [facility] Last Admin: 09/03/18 15:13 Dose: 100 mls/hr Lisinopril (Zestril) 20 mg PO BID [facility] Last Admin: 09/03/18 17:52 Dose: Not Given Metoprolol Tartrate (Lopressor) 50 mg PO BID [facility] Last Admin: 09/03/18 17:51 Dose: Not Given Multivitamins (Hexavitamin) 1 tab PO DAILY [facility] Pantoprazole Sodium (Protonix Inj) 40 mg IVP DAILY [facility] Rosuvastatin Calcium (Crestor) 10 mg PO HS [facility] Thiamine HCl (Vitamin B1 Tab) 100 mg PO DAILY [facility] Physical Exam - Constitutional Appears: Non-toxic, No Acute Distress - Head Exam Head Exam: ATRAUMATIC, NORMOCEPHALIC - Eye Exam Eye Exam: EOMI - ENT Exam ENT Exam: Mucous Membranes Moist - Respiratory Exam Respiratory Exam: NORMAL BREATHING PATTERN. absent: Accessory Muscle Use - Cardiovascular Exam Cardiovascular Exam: +S1, +S2 - Extremities Exam Additional comments: 3+ pitting edema b/l LE, B/l LE erythema, B/l pt 2+ signals, left sided DP signals - Neurological Exam Neurological exam: Alert, Oriented x3 - Psychiatric Exam Psychiatric exam: Normal Affect, Normal Mood - Skin Skin Exam: Dry, Intact Results - Vital Signs Recent Vital Signs: Last Vital Signs Temp 97.4 F L 09/03/18 15:10 Pulse 124 H 09/03/18 15:10 Resp 18 09/03/18 15:10 BP 148/89 09/03/18 15:10 Pulse Ox 99 09/03/18 15:10 - Labs Result Diagrams: 09/03/18 11:20 09/03/18 11:20 Labs: Laboratory Results - last 24 hr 09/03/18 09/03/18 09/03/18 11:05 11:20 11:20 WBC 12.6 H RBC 4.91 Hgb 15.6 D Hct 45.2 MCV 92.1 D MCH 31.8 H MCHC 34.5 RDW 13.1 Plt Count 263 MPV 9.5 Neut % (Auto) 80.7 H Lymph % (Auto) 10.6 L [place] % (Auto) 8.0 Eos % (Auto) 0.3 Baso % (Auto) 0.4 Neut # (Auto) 10.2 H Lymph # (Auto) 1.3 [place] # (Auto) 1.0 H Eos # (Auto) 0.0 Baso # (Auto) 0.1 PT 13.6 H INR 1.2 APTT 35 H pO2 35 VBG pH 7.41 VBG pCO2 32 L VBG HCO3 21.5 VBG Total CO2 21.3 L VBG O2 Sat (Calc) 74.9 H VBG Base Excess -3.4 L VBG Potassium 4.2 Sodium 123.0 L Chloride 91.0 L Glucose 104 Lactate 2.3 H Potassium Carbon Dioxide Anion Gap BUN Creatinine Est GFR ( Amer) Est GFR (Non-Af Amer) Random Glucose Hemoglobin A1c Serum Osmolality Lactic Acid Calcium Phosphorus Magnesium Total Bilirubin AST ALT Alkaline Phosphatase Total Creatine Kinase Troponin I NT-Pro-B Natriuret Pep Total Protein Albumin Globulin Albumin/Globulin Ratio Triglycerides Cholesterol LDL Cholesterol Direct HDL Cholesterol Vitamin B12 25-OH Vitamin D Total Folate Venous Blood Potassium 4.2 Urine Color Urine Clarity Urine pH Ur Specific [place] Urine Protein Urine Glucose (UA) Urine Ketones Urine Blood Urine Nitrate Urine Bilirubin Urine Urobilinogen Ur Leukocyte Esterase Urine WBC (Auto) Urine RBC (Auto) Ur Squamous Epith Cells Urine Bacteria Alcohol, Quantitative Hepatitis A IgM Ab Hep Bs Antigen Hep B Core IgM Ab 09/03/18 09/03/18 09/03/18 11:20 11:20 17:15 WBC RBC Hgb Hct MCV MCH MCHC RDW Plt Count MPV Neut % (Auto) Lymph % (Auto) [place] % (Auto) Eos % (Auto) Baso % (Auto) Neut # (Auto) Lymph # (Auto) [place] # (Auto) Eos # (Auto) Baso # (Auto) PT INR APTT pO2 VBG pH VBG pCO2 VBG HCO3 VBG Total CO2 VBG O2 Sat (Calc) VBG Base Excess VBG Potassium Sodium 125 L Chloride 92 L Glucose Lactate Potassium 4.5 Carbon Dioxide 21 L Anion Gap 17 BUN 9 Creatinine 0.5 L Est GFR ( Amer) > 60 Est GFR (Non-Af Amer) > 60 Random Glucose 105 Hemoglobin A1c Serum Osmolality Lactic Acid 1.8 Calcium 8.7 Phosphorus 3.3 Magnesium 1.8 Total Bilirubin 1.1 AST 50 ALT 46 Alkaline Phosphatase 116 Total Creatine Kinase Troponin I NT-Pro-B Natriuret Pep Total Protein 6.6 Albumin 3.5 Globulin 3.1 Albumin/Globulin Ratio 1.1 Triglycerides Cholesterol LDL Cholesterol Direct HDL Cholesterol Vitamin B12 25-OH Vitamin D Total Folate Venous Blood Potassium Urine Color Yellow Urine Clarity Clear Urine pH 6.0 Ur Specific [place] 1.010 Urine Protein Negative Urine Glucose (UA) Normal Urine Ketones Negative Urine Blood Negative Urine Nitrate Negative Urine Bilirubin Negative Urine Urobilinogen Normal Ur Leukocyte Esterase Neg Urine WBC (Auto) 1 Urine RBC (Auto) < 1 Ur Squamous Epith Cells 1 Urine Bacteria Rare Alcohol, Quantitative Hepatitis A IgM Ab Hep Bs Antigen Hep B Core IgM Ab 09/03/18 09/03/18 09/03/18 17:15 17:15 17:15 WBC RBC Hgb Hct MCV MCH MCHC RDW Plt Count MPV Neut % (Auto) Lymph % (Auto) [place] % (Auto) Eos % (Auto) Baso % (Auto) Neut # (Auto) Lymph # (Auto) [place] # (Auto) Eos # (Auto) Baso # (Auto) PT INR APTT pO2 VBG pH VBG pCO2 VBG HCO3 VBG Total CO2 VBG O2 Sat (Calc) VBG Base Excess VBG Potassium Sodium Chloride Glucose Lactate Potassium Carbon Dioxide Anion Gap BUN Creatinine Est GFR ( Amer) Est GFR (Non-Af Amer) Random Glucose Hemoglobin A1c 5.2 Serum Osmolality 266 L Lactic Acid Calcium Phosphorus Magnesium Total Bilirubin AST ALT Alkaline Phosphatase Total Creatine Kinase Troponin I 0.0200 NT-Pro-B Natriuret Pep 2410 H Total Protein Albumin Globulin Albumin/Globulin Ratio Triglycerides 50 Cholesterol 79 LDL Cholesterol Direct 37 HDL Cholesterol 47 Vitamin B12 25-OH Vitamin D Total Folate Venous Blood Potassium Urine Color Urine Clarity Urine pH Ur Specific [place] Urine Protein Urine Glucose (UA) Urine Ketones Urine Blood Urine Nitrate Urine Bilirubin Urine Urobilinogen Ur Leukocyte Esterase Urine WBC (Auto) Urine RBC (Auto) Ur Squamous Epith Cells Urine Bacteria Alcohol, Quantitative < 10 Hepatitis A IgM Ab Hep Bs Antigen Hep B Core IgM Ab 09/03/18 09/03/18 09/03/18 17:15 17:15 17:17 WBC RBC Hgb Hct MCV MCH MCHC RDW Plt Count MPV Neut % (Auto) Lymph % (Auto) [place] % (Auto) Eos % (Auto) Baso % (Auto) Neut # (Auto) Lymph # (Auto) [place] # (Auto) Eos # (Auto) Baso # (Auto) PT INR APTT pO2 VBG pH VBG pCO2 VBG HCO3 VBG Total CO2 VBG O2 Sat (Calc) VBG Base Excess VBG Potassium Sodium Chloride Glucose Lactate Potassium Carbon Dioxide Anion Gap BUN Creatinine Est GFR ( Amer) Est GFR (Non-Af Amer) Random Glucose Hemoglobin A1c Serum Osmolality Lactic Acid Calcium Phosphorus Magnesium Total Bilirubin AST ALT Alkaline Phosphatase Total Creatine Kinase 72 Troponin I NT-Pro-B Natriuret Pep Total Protein Albumin Globulin Albumin/Globulin Ratio Triglycerides Cholesterol LDL Cholesterol Direct HDL Cholesterol Vitamin B12 971 H 25-OH Vitamin D Total 40.0 Folate > 20.0 Venous Blood Potassium Urine Color Urine Clarity Urine pH Ur Specific [place] Urine Protein Urine Glucose (UA) Urine Ketones Urine Blood Urine Nitrate Urine Bilirubin Urine Urobilinogen Ur Leukocyte Esterase Urine WBC (Auto) Urine RBC (Auto) Ur Squamous Epith Cells Urine Bacteria Alcohol, Quantitative Hepatitis A IgM Ab Negative Hep Bs Antigen Negative Hep B Core IgM Ab Negative Assessment & Plan - Assessment and Plan (Free Text) Assessment: 73M with PVD Elevate legs Compressive dressing or stockings further recs per Dr. Kayla Chino PGY3
[2018-09-03 19:52] LABS: HEPATITIS C ANTIBODY REACTIVE (NEGATIVE)
[2018-09-03 21:45] LABS: OSMOLALITY,URINE 221 mosm/kg (300-1000)
[2018-09-03 22:07] LABS: BARBITURATES, UR NEGATIVE (NEGATIVE); BENZODIAZEPINES, UR NEGATIVE (NEGATIVE); OPIATES, UR NEGATIVE (NEGATIVE); PHENCYCLIDINE, UR NEGATIVE (NEGATIVE)
[2018-09-03] MEDS: Oxycodone/Acetaminophen 5/325 mg Tab PO PRN (22:33)
[2018-09-03] MEDS: Ammonium Lactate 12% Lotion (225 g) EXT SCH (22:45)
[2018-09-04] MEDS: Sodium Chloride 0.9% 1,000 ML IV SCH ×3 (00:30→20:03)
[2018-09-04] MEDS: Piperacill/Tazo 2.25gm in Dex 2.25 GM/50 ML BAG IVPB SCH ×4 (01:30→21:00)
--- NOTE | 2018-09-04 07:18 | CP.PCM.CON ---
History of Present Illness - History of Present Illness History of Present Illness: CONSULTATION DICTATED METABOLIC ENCEPHALOPATHY / POST ICTAL/ NEW TIA WORK UP PER ORDER ABIOTICS PER ID OOB/PT STROKE PROPHYLAXIS B1 Past Patient History - Infectious Disease Hx of Infectious Diseases: None - Tetanus Immunizations Tetanus Immunization: Unknown - Past Medical History & Family History Past Medical History?: No - Past Social History Smoking Status: Never Smoked - CARDIAC Hx Hypertension: Yes - PULMONARY Hx Respiratory Disorders: No Other/Comment: FORMER SMOKER - NEUROLOGICAL HX Cerebrovascular Accident: Yes - HEENT Hx HEENT Problems: No - RENAL Hx Chronic Kidney Disease: No - ENDOCRINE/METABOLIC Hx Diabetes Mellitus Type 2: Yes (?) - HEMATOLOGICAL/ONCOLOGICAL Hx Blood Disorders: No - INTEGUMENTARY Hx Dermatological Problems: No - MUSCULOSKELETAL/RHEUMATOLOGICAL Hx Falls: No - GASTROINTESTINAL Hx Gastrointestinal Disorders: No - GENITOURINARY/GYNECOLOGICAL Hx Genitourinary Disorders: No - PSYCHIATRIC Hx Substance Use: No - SURGICAL HISTORY Hx Coronary Stent: Yes - ANESTHESIA Hx Anesthesia: Yes Hx Anesthesia Reactions: No Meds Allergies/Adverse Reactions: Allergies Allergy/AdvReac Type Severity Reaction Status Date / Time No Known Allergies Allergy Verified 09/03/18 11:27 - Medications Medications: Current Medications Aspirin (Aspirin Chewable) 81 mg PO DAILY [facility] Folic Acid (Folic Acid) 1 mg PO DAILY [facility] Vancomycin/Sodium Chloride (Vancomycin 1 Gm/Ns 200 Ml) 1 gm in 200 mls @ 133.333 mls/hr IVPB Q24H [facility]; Protocol Piperacillin Sod/Tazobactam Sod (Zosyn 2.25 Gm Iv Premix) 2.25 gm in 50 mls @ 100 mls/hr IVPB Q6H [facility]; Protocol Last Admin: 09/04/18 01:30 Dose: 100 mls/hr Sodium Chloride (Sodium Chloride 0.9%) 1,000 mls @ 100 mls/hr IV .Q10H [facility] Last Admin: 09/04/18 05:00 Dose: 100 mls/hr Lactic Acid (Lac-Hydrin 12% Lotion (225 G)) 1 gm EXT BID [facility] Last Admin: 09/03/18 22:45 Dose: 1 % Lisinopril (Zestril) 20 mg PO BID [facility] Last Admin: 09/03/18 17:52 Dose: Not Given Metoprolol Tartrate (Lopressor) 50 mg PO BID [facility] Last Admin: 09/03/18 17:51 Dose: Not Given Multivitamins (Hexavitamin) 1 tab PO DAILY [facility] Oxycodone/Acetaminophen (Percocet 5/325 Mg Tab) 1 tab PO Q4H PRN PRN Reason: Pain, moderate (4-7) Stop: 09/06/18 22:24 Last Admin: 09/03/18 22:33 Dose: 1 tab Pantoprazole Sodium (Protonix Inj) 40 mg IVP DAILY [facility] Rosuvastatin Calcium (Crestor) 10 mg PO HS [facility] Last Admin: 09/03/18 21:16 Dose: Not Given Thiamine HCl (Vitamin B1 Tab) 100 mg PO DAILY [facility] Results - Vital Signs Recent Vital Signs: Last Vital Signs Temp 97.8 F 09/03/18 23:40 Pulse 97 H 09/03/18 23:40 Resp 20 09/03/18 23:40 BP 121/81 09/03/18 23:40 Pulse Ox 97 09/03/18 23:40 - Labs Result Diagrams: 09/03/18 11:20 09/03/18 11:20 Labs: Laboratory Results - last 24 hr 09/03/18 09/03/18 09/03/18 11:05 11:20 11:20 WBC 12.6 H RBC 4.91 Hgb 15.6 D Hct 45.2 MCV 92.1 D MCH 31.8 H MCHC 34.5 RDW 13.1 Plt Count 263 MPV 9.5 Neut % (Auto) 80.7 H Lymph % (Auto) 10.6 L [place] % (Auto) 8.0 Eos % (Auto) 0.3 Baso % (Auto) 0.4 Neut # (Auto) 10.2 H Lymph # (Auto) 1.3 [place] # (Auto) 1.0 H Eos # (Auto) 0.0 Baso # (Auto) 0.1 PT 13.6 H INR 1.2 APTT 35 H pO2 35 VBG pH 7.41 VBG pCO2 32 L VBG HCO3 21.5 VBG Total CO2 21.3 L VBG O2 Sat (Calc) 74.9 H VBG Base Excess -3.4 L VBG Potassium 4.2 Sodium 123.0 L Chloride 91.0 L Glucose 104 Lactate 2.3 H Potassium Carbon Dioxide Anion Gap BUN Creatinine Est GFR ( Amer) Est GFR (Non-Af Amer) Random Glucose Hemoglobin A1c Serum Osmolality Lactic Acid Calcium Phosphorus Magnesium Total Bilirubin AST ALT Alkaline Phosphatase Total Creatine Kinase Troponin I C-Reactive Protein NT-Pro-B Natriuret Pep Total Protein Albumin Globulin Albumin/Globulin Ratio Triglycerides Cholesterol LDL Cholesterol Direct HDL Cholesterol Vitamin B12 25-OH Vitamin D Total Folate Procalcitonin Venous Blood Potassium 4.2 Urine Color Urine Clarity Urine pH Ur Specific [place] Urine Protein Urine Glucose (UA) Urine Ketones Urine Blood Urine Nitrate Urine Bilirubin Urine Urobilinogen Ur Leukocyte Esterase Urine WBC (Auto) Urine RBC (Auto) Ur Squamous Epith Cells Urine Bacteria Urine Osmolality Ur Random Sodium Urine Opiates Screen Urine Methadone Screen Ur Barbiturates Screen Ur Phencyclidine Scrn Ur Amphetamines Screen U Benzodiazepines Scrn U Oth Cocaine Metabols U Cannabinoids Screen Alcohol, Quantitative Hepatitis A IgM Ab Hep Bs Antigen Hep B Core IgM Ab Hepatitis C Antibody 09/03/18 09/03/18 09/03/18 11:20 11:20 17:15 WBC RBC Hgb Hct MCV MCH MCHC RDW Plt Count MPV Neut % (Auto) Lymph % (Auto) [place] % (Auto) Eos % (Auto) Baso % (Auto) Neut # (Auto) Lymph # (Auto) [place] # (Auto) Eos # (Auto) Baso # (Auto) PT INR APTT pO2 VBG pH VBG pCO2 VBG HCO3 VBG Total CO2 VBG O2 Sat (Calc) VBG Base Excess VBG Potassium Sodium 125 L Chloride 92 L Glucose Lactate Potassium 4.5 Carbon Dioxide 21 L Anion Gap 17 BUN 9 Creatinine 0.5 L Est GFR ( Amer) > 60 Est GFR (Non-Af Amer) > 60 Random Glucose 105 Hemoglobin A1c Serum Osmolality Lactic Acid Calcium 8.7 Phosphorus 3.3 Magnesium 1.8 Total Bilirubin 1.1 AST 50 ALT 46 Alkaline Phosphatase 116 Total Creatine Kinase Troponin I C-Reactive Protein NT-Pro-B Natriuret Pep Total Protein 6.6 Albumin 3.5 Globulin 3.1 Albumin/Globulin Ratio 1.1 Triglycerides Cholesterol LDL Cholesterol Direct HDL Cholesterol Vitamin B12 25-OH Vitamin D Total Folate Procalcitonin < 0.05 L Venous Blood Potassium Urine Color Yellow Urine Clarity Clear Urine pH 6.0 Ur Specific [place] 1.010 Urine Protein Negative Urine Glucose (UA) Normal Urine Ketones Negative Urine Blood Negative Urine Nitrate Negative Urine Bilirubin Negative Urine Urobilinogen Normal Ur Leukocyte Esterase Neg Urine WBC (Auto) 1 Urine RBC (Auto) < 1 Ur Squamous Epith Cells 1 Urine Bacteria Rare Urine Osmolality Ur Random Sodium Urine Opiates Screen Urine Methadone Screen Ur Barbiturates Screen Ur Phencyclidine Scrn Ur Amphetamines Screen U Benzodiazepines Scrn U Oth Cocaine Metabols U Cannabinoids Screen Alcohol, Quantitative Hepatitis A IgM Ab Hep Bs Antigen Hep B Core IgM Ab Hepatitis C Antibody 09/03/18 09/03/18 09/03/18 17:15 17:15 17:15 WBC RBC Hgb Hct MCV MCH MCHC RDW Plt Count MPV Neut % (Auto) Lymph % (Auto) [place] % (Auto) Eos % (Auto) Baso % (Auto) Neut # (Auto) Lymph # (Auto) [place] # (Auto) Eos # (Auto) Baso # (Auto) PT INR APTT pO2 VBG pH VBG pCO2 VBG HCO3 VBG Total CO2 VBG O2 Sat (Calc) VBG Base Excess VBG Potassium Sodium Chloride Glucose Lactate Potassium Carbon Dioxide Anion Gap BUN Creatinine Est GFR ( Amer) Est GFR (Non-Af Amer) Random Glucose Hemoglobin A1c 5.2 Serum Osmolality Lactic Acid 1.8 Calcium Phosphorus Magnesium Total Bilirubin AST ALT Alkaline Phosphatase Total Creatine Kinase Troponin I 0.0200 C-Reactive Protein NT-Pro-B Natriuret Pep 2410 H Total Protein Albumin Globulin Albumin/Globulin Ratio Triglycerides 50 Cholesterol 79 LDL Cholesterol Direct 37 HDL Cholesterol 47 Vitamin B12 25-OH Vitamin D Total Folate Procalcitonin Venous Blood Potassium Urine Color Urine Clarity Urine pH Ur Specific [place] Urine Protein Urine Glucose (UA) Urine Ketones Urine Blood Urine Nitrate Urine Bilirubin Urine Urobilinogen Ur Leukocyte Esterase Urine WBC (Auto) Urine RBC (Auto) Ur Squamous Epith Cells Urine Bacteria Urine Osmolality Ur Random Sodium Urine Opiates Screen Urine Methadone Screen Ur Barbiturates Screen Ur Phencyclidine Scrn Ur Amphetamines Screen U Benzodiazepines Scrn U Oth Cocaine Metabols U Cannabinoids Screen Alcohol, Quantitative < 10 Hepatitis A IgM Ab Hep Bs Antigen Hep B Core IgM Ab Hepatitis C Antibody 09/03/18 09/03/18 09/03/18 17:15 17:15 17:15 WBC RBC Hgb Hct MCV MCH MCHC RDW Plt Count MPV Neut % (Auto) Lymph % (Auto) [place] % (Auto) Eos % (Auto) Baso % (Auto) Neut # (Auto) Lymph # (Auto) [place] # (Auto) Eos # (Auto) Baso # (Auto) PT INR APTT pO2 VBG pH VBG pCO2 VBG HCO3 VBG Total CO2 VBG O2 Sat (Calc) VBG Base Excess VBG Potassium Sodium Chloride Glucose Lactate Potassium Carbon Dioxide Anion Gap BUN Creatinine Est GFR ( Amer) Est GFR (Non-Af Amer) Random Glucose Hemoglobin A1c Serum Osmolality 266 L Lactic Acid Calcium Phosphorus Magnesium Total Bilirubin AST ALT Alkaline Phosphatase Total Creatine Kinase 72 Troponin I C-Reactive Protein 8.70 NT-Pro-B Natriuret Pep Total Protein Albumin Globulin Albumin/Globulin Ratio Triglycerides Cholesterol LDL Cholesterol Direct HDL Cholesterol Vitamin B12 971 H 25-OH Vitamin D Total 40.0 Folate > 20.0 Procalcitonin Venous Blood Potassium Urine Color Urine Clarity Urine pH Ur Specific [place] Urine Protein Urine Glucose (UA) Urine Ketones Urine Blood Urine Nitrate Urine Bilirubin Urine Urobilinogen Ur Leukocyte Esterase Urine WBC (Auto) Urine RBC (Auto) Ur Squamous Epith Cells Urine Bacteria Urine Osmolality Ur Random Sodium Urine Opiates Screen Urine Methadone Screen Ur Barbiturates Screen Ur Phencyclidine Scrn Ur Amphetamines Screen U Benzodiazepines Scrn U Oth Cocaine Metabols U Cannabinoids Screen Alcohol, Quantitative Hepatitis A IgM Ab Hep Bs Antigen Hep B Core IgM Ab Hepatitis C Antibody 09/03/18 09/03/18 09/04/18 17:17 21:10 01:59 WBC RBC Hgb Hct MCV MCH MCHC RDW Plt Count MPV Neut % (Auto) Lymph % (Auto) [place] % (Auto) Eos % (Auto) Baso % (Auto) Neut # (Auto) Lymph # (Auto) [place] # (Auto) Eos # (Auto) Baso # (Auto) PT INR APTT pO2 VBG pH VBG pCO2 VBG HCO3 VBG Total CO2 VBG O2 Sat (Calc) VBG Base Excess VBG Potassium Sodium Chloride Glucose Lactate Potassium Carbon Dioxide Anion Gap BUN Creatinine Est GFR ( Amer) Est GFR (Non-Af Amer) Random Glucose Hemoglobin A1c Serum Osmolality Lactic Acid Calcium Phosphorus Magnesium Total Bilirubin AST ALT Alkaline Phosphatase Total Creatine Kinase Troponin I 0.0190 C-Reactive Protein NT-Pro-B Natriuret Pep Total Protein Albumin Globulin Albumin/Globulin Ratio Triglycerides Cholesterol LDL Cholesterol Direct HDL Cholesterol Vitamin B12 25-OH Vitamin D Total Folate Procalcitonin Venous Blood Potassium Urine Color Urine Clarity Urine pH Ur Specific [place] Urine Protein Urine Glucose (UA) Urine Ketones Urine Blood Urine Nitrate Urine Bilirubin Urine Urobilinogen Ur Leukocyte Esterase Urine WBC (Auto) Urine RBC (Auto) Ur Squamous Epith Cells Urine Bacteria Urine Osmolality 221 L Ur Random Sodium < 5 Urine Opiates Screen Negative Urine Methadone Screen Negative Ur Barbiturates Screen Negative Ur Phencyclidine Scrn Negative Ur Amphetamines Screen Negative U Benzodiazepines Scrn Negative U Oth Cocaine Metabols Negative U Cannabinoids Screen Negative Alcohol, Quantitative Hepatitis A IgM Ab Negative Hep Bs Antigen Negative Hep B Core IgM Ab Negative Hepatitis C Antibody Reactive
[2018-09-04 07:21] LABS: BASO # 0.1 K/uL (0.0-0.2); BASO % 0.7 % (0.0-2.0); EOS # 0.1 K/uL (0.0-0.7); EOS % 0.7 % (0.0-4.0); HEMOGLOBIN 14.5 g/dL (12.0-18.0); LYMPH # 1.5 K/uL (1.0-4.3); LYMPH % 13.5 % (20.0-40.0); MEAN CELL VOLUME 91.4 fL (80.0-94.0); MEAN CORPUSCULAR HEMOGLOBIN 31.8 pg (27.0-31.0); MEAN CORPUSCULAR HGB CONC 34.7 g/dL (33.0-37.0); MEAN PLATELET VOLUME 8.9 fL (7.2-11.7); MONO % 9.4 % (0.0-10.0); NEUT # 8.3 K/uL (1.8-7.0); NEUT % 75.7 % (50.0-75.0); NRBC % 0.1 % (0.0-2.0); RBC 4.55 Mil/uL (4.40-5.90); RED CELL DISTRIBUTION WIDTH 13.1 % (11.5-14.5); WHITE BLOOD COUNT 10.9 K/uL (4.8-10.8)
[2018-09-04 08:03] LABS: ALBUMIN 2.9 g/dL (3.5-5.0); ALT/SGPT 45 U/L (21-72); AST/SGOT 41 U/L (17-59); BLOOD UREA NITROGEN 8 mg/dL (9-20); CALCIUM 8.2 mg/dl (8.6-10.4); GFR NON-AFRICAN AMERICAN > 60
[2018-09-04 08:26] LABS: FREE T4 1.33 ng/dL (0.78-2.19)
[2018-09-04 09:11] LABS: FOLATE > 20.0 ng/mL
[2018-09-04] MEDS: Ammonium Lactate 12% Lotion (225 g) EXT SCH ×2 (11:15→18:00)
[2018-09-04] MEDS: Multiple Vitamins Tab PO SCH (11:15)
[2018-09-04] MEDS: Oxycodone/Acetaminophen 5/325 mg Tab PO PRN (11:16)
--- NOTE | 2018-09-04 12:10 | CP.PCM.PN ---
Subjective - Date & Time of Evaluation Date of Evaluation: 09/04/18 Time of Evaluation: 12:17 - Subjective Subjective: PGY3 Note for Dr. Chavez This patient was seen and examined at bedside; retired vet from [place]; denies any symptoms today besides lower extremity pain/swelling which he states is better than when he came in. Denies all other symptoms. Objective - Vital Signs/Intake and Output Vital Signs (last 24 hours): Temp Pulse Resp BP Pulse Ox 97.8 F 115 H 20 132/92 H 97 09/04/18 08:00 09/04/18 08:00 09/04/18 08:00 09/04/18 08:00 09/04/18 08:00 Intake and Output: 09/04/18 09/04/18 06:59 18:59 Intake Total 600 Output Total 300 Balance 300 - Medications Medications: Current Medications Aspirin (Aspirin Chewable) 81 mg PO DAILY [facility] Last Admin: 09/04/18 11:14 Dose: 81 mg Folic Acid (Folic Acid) 1 mg PO DAILY [facility] Last Admin: 09/04/18 11:14 Dose: 1 mg Vancomycin/Sodium Chloride (Vancomycin 1 Gm/Ns 200 Ml) 1 gm in 200 mls @ 133.333 mls/hr IVPB Q24H [facility]; Protocol Piperacillin Sod/Tazobactam Sod (Zosyn 2.25 Gm Iv Premix) 2.25 gm in 50 mls @ 100 mls/hr IVPB Q6H [facility]; Protocol Last Admin: 09/04/18 07:48 Dose: 100 mls/hr Sodium Chloride (Sodium Chloride 0.9%) 1,000 mls @ 100 mls/hr IV .Q10H [facility] Last Admin: 09/04/18 05:00 Dose: 100 mls/hr Lactic Acid (Lac-Hydrin 12% Lotion (225 G)) 1 gm EXT BID [facility] Last Admin: 09/04/18 11:15 Dose: 12 % Lisinopril (Zestril) 20 mg PO BID [facility] Last Admin: 09/04/18 11:16 Dose: 20 mg Metoprolol Tartrate (Lopressor) 50 mg PO BID [facility] Last Admin: 09/04/18 11:15 Dose: 50 mg Multivitamins (Hexavitamin) 1 tab PO DAILY [facility] Last Admin: 09/04/18 11:15 Dose: 1 tab Oxycodone/Acetaminophen (Percocet 5/325 Mg Tab) 1 tab PO Q4H PRN PRN Reason: Pain, moderate (4-7) Stop: 09/06/18 22:24 Last Admin: 09/04/18 11:16 Dose: 1 tab Pantoprazole Sodium (Protonix Inj) 40 mg IVP DAILY [facility] Last Admin: 09/04/18 11:15 Dose: 40 mg Rosuvastatin Calcium (Crestor) 10 mg PO HS [facility] Last Admin: 09/03/18 21:16 Dose: Not Given Thiamine HCl (Vitamin B1 Tab) 100 mg PO DAILY [facility] Last Admin: 09/04/18 11:16 Dose: 100 mg - Labs Labs: 09/04/18 07:10 09/04/18 07:10 PT 13.6 SECONDS (9.7-12.2) H 09/03/18 11:20 INR 1.2 09/03/18 11:20 APTT 35 SECONDS (21-34) H 09/03/18 11:20 - Constitutional Appears: Non-toxic - Head Exam Head Exam: ATRAUMATIC - Eye Exam Eye Exam: EOMI, Normal appearance, PERRL - ENT Exam ENT Exam: Mucous Membranes Moist - Neck Exam Neck Exam: Full ROM - Respiratory Exam Respiratory Exam: Clear to Ausculation Bilateral. absent: Rales, Rhonchi, Wheezes - Cardiovascular Exam Cardiovascular Exam: REGULAR RHYTHM, +S1 - GI/Abdominal Exam GI & Abdominal Exam: Soft, Normal Bowel Sounds - Extremities Exam Additional comments: bl lower extremities weeping red with pads/painful to the touch - Back Exam Back Exam: absent: CVA tenderness (L), CVA tenderness (R) - Neurological Exam Neurological Exam: Alert, Awake - Psychiatric Exam Psychiatric exam: Normal Affect - Skin Skin Exam: Warm Assessment and Plan - Assessment and Plan (Free Text) Assessment: This is a 73 yo male with chronic lower extremity cellulitis Lower Extremity Cellulitis; bilateral -dopplers negative for DVT -vascular surgery consult. Dr. Garza. recs appreciated. -hba1c 5.2 -elevate legs/compression stockings -ID consult. Dr. Muhammad. recs appreciated. -vancomycin IV 1g Q24H -zosyn IV 2.25 Q8H -procalcitonin negative -CXR negative Fall -cpk 72 -head ct pending shows no acute process; encaphalomalacia -PT/OT; appreciate recs Hx of HTN -cardiology consult; appreciate recs -c/w home meds tachycardia; resolved -1 x dose of metoprolol in ER -EKG; chronic LBBB -trops x 3 negative -BNP 2420; elevated -echo pending; f/u results hx of CVA -neurology consult. Dr. Sommer. recs appreciated. -PT/OT hx of alcohol abuse -[facility] protocol -psychiatry consult. Dr. Collins. recs appreciated. -seizure precautions -aspiration precautions -fall precautions -thiamine, folate, mv daily -b12 and folate WNL hyponatremia -serum osmo -urine osmo 221; low -urine sodium below 5 obesity -hgb a1c 5.2 -lipid panel shows trig 50, chol 79, LDL 37, HDL 47 GI/DVT ppx -GI prophylaxis not indicated Case discussed and seen with Dr. Scott Rivas PGY3
[2018-09-04] MEDS: Vancomycin 1 gm/NS 200 ml 1 GM/200 ML BAG IVPB SCH (12:30)
--- NOTE | 2018-09-04 12:50 | CARD ---
APPROVED REPORT Date of service: 09/03/2018 EKG Measurement Heart [id number] VA 128P [id number] <Conclusion> Undetermined rhythm Left bundle branch block Abnormal ECG
--- NOTE | 2018-09-04 13:39 | MRI ---
Date of service: 09/04/2018 PROCEDURE: MRI BRAIN WITHOUT CONTRAST HISTORY: ischemia Vs degeneration COMPARISON: None available. TECHNIQUE: Multiplanar, multisequence MR images of the brain were obtained without intravenous contrast enhancement. FINDINGS: HEMORRHAGE: None DWI: No evidence of an acute or early subacute infarction. BRAIN PARENCHYMA: No mass effect or edema. Severe chronic microvascular changes are seen in the periventricular white matter. There is severe atrophy VENTRICLES: Unremarkable. No hydrocephalus. There is a cavum septum pellucidum which is a normal variation CRANIUM: Unremarkable. ORBITS: Grossly unremarkable. PARANASAL SINUSES/MASTOIDS: Clear VASCULAR SYSTEM: Skull base flow voids intact. OTHER FINDINGS: None. IMPRESSION: Severe chronic microvascular changes are seen in the periventricular white matter. There is severe atrophy No acute intracranial findings.
[2018-09-04 14:01] LABS: PROLACTIN 18.2 ng/mL (3.7-17.9)
--- NOTE | 2018-09-04 14:06 | CARD ---
APPROVED REPORT Date of service: 09/04/2018 EXAM: Two-dimensional and M-mode echocardiogram with Doppler and color Doppler. INDICATION Acute [place] Cardiac Disease: CAD Syncope RISK FACTORS Hypertension 2D DIMENSIONS IVSd1.0 (0.7-1.1cm)Aortic Root (2D)3.4 (2.0-3.7cm) LVDd5.2 (3.9-5.9cm)LVOT Diameter2.1 (1.8-2.4cm) PWd1.2 (0.7-1.1cm)LA Vzhakp57 (18-58mL) LVDs4.4 (2.5-4.0cm)FS (%) 16.1 % LVEF (%)33.6 (>50%)IVC0.00 cm M-Mode DIMENSIONS RVDd3.30 (2.1-3.2cm)Left Atrium (MM)5.11 (2.5-4.0cm) IVSd0.95 (0.7-1.1cm)Aortic Root3.21 (2.2-3.7cm) LVDd5.40 (4.0-5.6cm)Aortic Cusp Exc.0.78 (1.5-2.0cm) PWd1.07 (0.7-1.1cm)FS (%) 19 % LVDs4.37 (2.0-3.8cm)TAPSE13.19 cm LVEF (%)39 (>50%) Aortic Valve AoV Peak Ujfvorvr619.6cm/sAoV VTI30.7cmAO Peak GR.16mmHg LVOT Peak Sbqueyil17.6cm/sLVOT VTI15.25cmAO Mean GR.8mmHg CLAU (VMAX)1.75ko4KRE (VTI)1.75cm2 Mitral Valve MV E Aroenazc231.1cm/sMV A Tyxvnrxk55.3cm/sE/A ratio1.7 PLOZ837.16 cm/s TDI Lateral E' Peak V8.48cm/sMedial E' Peak V3.64cm/sE/Lateral E'17.1 E/Medial E'39.9 Tricuspid Valve TR Peak Rethxwbe810xx/sTR Peak Gr.44ixDrFYOA19cnFu LEFT VENTRICLE The left ventricle is normal size. There is normal left ventricular wall thickness. Left ventricle systolic function is moderately impaired. The Ejection Fraction is 30-35%. Significant regional wall motion abnormalities noted. septum and inferior wall is almost akinetic can not predict due to mod. calcification of mitral annulus Probably Grade 2 DF No left ventricle thrombus noted on this study. There is no ventricular septal defect visualized. There is no left ventricular aneurysm. There is no mass noted in the left ventricle. RIGHT VENTRICLE The right ventricle is normal size. There is normal right ventricular wall thickness. The right ventricular systolic function is normal. ATRIA The left atrium is mildly dilated. The right atrium size is normal. The interatrial septum is intact with no evidence for an atrial septal defect. AORTIC VALVE The aortic valve is moderately calcified. No aortic regurgitation is present. Calculation shows low flow low gradient Aortic stenosis, recommend dobutamine stress echo to correctly evaluate aortic valve gradient and valve area There is no aortic valvular vegetation. MITRAL VALVE The mitral valve is normal in structure and function. Mitral annular calcification is moderate. There is no evidence of mitral valve prolapse. There is no mitral valve stenosis. Mitral regurgitation is mild. TRICUSPID VALVE The tricuspid valve is normal in structure and function. There is mild to moderate tricuspid regurgitation. Right ventricular systolic pressure is estimated at 40-50 mmHg. There is no tricuspid valve prolapse or vegetation. There is no tricuspid valve stenosis. PULMONIC VALVE The pulmonary valve is normal in structure and function. There is no pulmonic valvular regurgitation. There is no pulmonic valvular stenosis. GREAT VESSELS The aortic root is normal in size. The ascending aorta is normal in size. The pulmonary artery is normal. The IVC is normal in size and collapses >50% with inspiration. PERICARDIAL EFFUSION The pericardium appears normal. There is no pleural effusion. <Conclusion> Left ventricle systolic function is moderately impaired. The Ejection Fraction is 30-35%. Significant regional wall motion abnormalities noted. septum and inferior wall is almost akinetic Calculation shows low flow low gradient Aortic stenosis, recommend dobutamine stress echo to correctly evaluate aortic valve gradient and valve area Mitral regurgitation is mild. There is mild to moderate tricuspid regurgitation. Right ventricular systolic pressure is estimated at 40-50 mmHg. can not predict due to mod. calcification of mitral annulus Probably Grade 2 DF
--- NOTE | 2018-09-04 15:30 | PCM.PSYCH ---
Initial Psychiatric Evaluation - Initial Psychiatric Evaluation Type of Admission: Voluntary Legal Status: Capacity Chief Complaint (in patient's own words): I'm feeling depressed History of Present Illness and Precipitating Events: This is a 73 yo male with past medical hx of CVA in 2013, HTN, [place], hepatitis C, alcohol abuse, presenting with chief complaint of swollen and red legs. Pt is a very unreliable historian. Today psychiatry was consulted. Denies any past psychiatric history of any inpatient psychiatric hospitalizations and denies any history of follow-up with any psychiatrist. Patient reports depressed mood, as he is living alone, however he denies any feelings of hopelessness and helplessness. He denies any suicidal ideation or any homicidal ideation. He reports poor sleep but denies any change in these appetite. He denies any auditory or visual hallucinations or any paranoia. He denies any manic symptoms.He reports of drinking couple of beers weekly, however he denies abusing drugs. Current Medications: Active Medications Generic Name Dose Route Start Last Admin Trade Name Freq PRN Reason Stop Dose Admin Aspirin 81 mg 09/04/18 10:00 09/04/18 11:14 Aspirin Chewable PO 81 mg DAILY [facility] Administration Folic Acid 1 mg 09/04/18 10:00 09/04/18 11:14 Folic Acid PO 1 mg DAILY [facility] Administration Vancomycin/Sodium Chloride 1 gm in 200 mls @ 133.333 mls/hr 09/04/18 12:30 09/04/18 12:30 Vancomycin 1 Gm/Ns 200 Ml IVPB 133.333 mls/hr Q24H [facility] Administration Protocol Piperacillin Sod/Tazobactam Sod 2.25 gm in 50 mls @ 100 mls/hr 09/03/18 20:00 09/04/18 14:17 Zosyn 2.25 Gm Iv Premix IVPB 100 mls/hr Q6H [facility] Administration Protocol Sodium Chloride 1,000 mls @ 100 mls/hr 09/03/18 14:30 09/04/18 05:00 Sodium Chloride 0.9% IV 100 mls/hr .Q10H [facility] Administration Lactic Acid 1 gm 09/03/18 22:24 09/04/18 11:15 Lac-Hydrin 12% Lotion (225 G) EXT 12 % BID [facility] Administration Lisinopril 20 mg 09/03/18 18:00 09/04/18 11:16 Zestril PO 20 mg BID [facility] Administration Metoprolol Tartrate 50 mg 09/03/18 18:00 09/04/18 11:15 Lopressor PO 50 mg BID [facility] Administration Multivitamins 1 tab 09/04/18 10:00 09/04/18 11:15 Hexavitamin PO 1 tab DAILY [facility] Administration Oxycodone/Acetaminophen 1 tab 09/03/18 22:23 09/04/18 11:16 Percocet 5/325 Mg Tab PO 09/06/18 22:24 1 tab Q4H PRN Administration Pain, moderate (4-7) Rosuvastatin Calcium 10 mg 09/03/18 22:00 09/03/18 21:16 Crestor PO Not Given HS REPLACED BY [facility] Thiamine HCl 100 mg 09/04/18 10:00 09/04/18 11:16 Vitamin B1 Tab PO 100 mg DAILY [facility] Administration Past Psychiatric History - Past Psychiatric History Previous Treatment History: None Pertinent Medical Hx (Current Medical&Sleep Prob, Allergies): Allergies Allergy/AdvReac Type Severity Reaction Status Date / Time No Known Allergies Allergy Verified 09/03/18 11:27 Aspirin 325 mg PO DAILY 01/17/16 Metoprolol Tartrate [Lopressor] 50 mg PO BID #0 tab 01/21/16 Atorvastatin Calcium 20 mg PO DAILY 09/03/18 Cholecalciferol (Vitamin D3) [Vitamin D3] 1,000 unit PO DAILY 09/03/18 Cyanocobalamin [Vitamin B12 100 mcg Tab] 100 mg PO DAILY 09/03/18 Folic Acid 1 mg PO DAILY 09/03/18 Lisinopril [Zestril] 20 mg PO BID 09/03/18 amLODIPine [Norvasc] 10 mg PO DAILY 09/03/18 hydroCHLOROthiazide [Hydrodiuril] 25 mg PO DAILY 09/03/18 Review of Systems - Review of Systems All systems: reviewed and no additional remarkable complaints except - Psychiatric Psychiatric: Anxiety, Irritability. absent: Suicidal Ideation Mental Status Examination - Personal Presentation Personal Presentation: Looks stated age - Affect Affect: Constricted, Depressed - Motor Activity Motor Activity: Calm - Reliability in Providing Information Reliability in Providing Information: Fair - Speech Speech: Organized - Mood Mood: Depressed, Anxious - Formal Thought Process Formal Thought Process: No Impairment - Cognitive Functions Orientation: Person, Place, Situation, Time Sensorium: Alert Attention/Concentration: Attentive Estimate of Intelligence: Below average Judgement: Imparied, as evidence by: Poor judgement, Imparied, as evidence by: Lack of insight into illness - Risk Risk: Diminished functioning - Limitations Limitations: Living alone DSM 5 DX - DSM 5 DSM 5 Diagnosis: Major depressive disorder recurrent moderate - Recommended/Plan of Treatment Treatment Recommendations and Plan of Treatment: Major depressive disorder recurrent moderate CBT Psychoeducation Start Paxil 10 mg daily Start trazodone 25 mg by mouth daily at bedtime Hydroxyzine 25 mg by mouth every 6 hours when necessary Patient psychiatrically stable and cleared for discharge - Smoking Cessation Smoking Cessation Initiated: No
[2018-09-04] MEDS ORDERED: Sodium Chloride 0.9% 250 ML IV ONE (15:46)
--- NOTE | 2018-09-04 16:21 | CP.PCM.PN ---
Subjective - Date & Time of Evaluation Date of Evaluation: 09/04/18 Time of Evaluation: 06:00 - Subjective Subjective: afeb nad Objective - Vital Signs/Intake and Output Vital Signs (last 24 hours): Temp Pulse Resp BP Pulse Ox 97.8 F 115 H 20 132/92 H 97 09/04/18 08:00 09/04/18 08:00 09/04/18 08:00 09/04/18 08:00 09/04/18 08:00 Intake and Output: 09/04/18 09/04/18 06:59 18:59 Intake Total 600 Output Total 300 Balance 300 - Medications Medications: Current Medications Acetaminophen (Tylenol 325mg Tab) 650 mg PO Q6 PRN PRN Reason: Pain, Mild (1-3) Aspirin (Aspirin Chewable) 81 mg PO DAILY [facility] Last Admin: 09/04/18 11:14 Dose: 81 mg Folic Acid (Folic Acid) 1 mg PO DAILY [facility] Last Admin: 09/04/18 11:14 Dose: 1 mg Hydroxyzine HCl (Atarax) 25 mg PO Q6 PRN PRN Reason: Agitation Vancomycin/Sodium Chloride (Vancomycin 1 Gm/Ns 200 Ml) 1 gm in 200 mls @ 133.333 mls/hr IVPB Q24H [facility]; Protocol Last Admin: 09/04/18 12:30 Dose: 133.333 mls/hr Piperacillin Sod/Tazobactam Sod (Zosyn 2.25 Gm Iv Premix) 2.25 gm in 50 mls @ 100 mls/hr IVPB Q6H [facility]; Protocol Last Admin: 09/04/18 14:17 Dose: 100 mls/hr Sodium Chloride (Sodium Chloride 0.9%) 1,000 mls @ 100 mls/hr IV .Q10H [facility] Last Admin: 09/04/18 05:00 Dose: 100 mls/hr Sodium Chloride (Sodium Chloride 0.9%) 250 mls @ 250 mls/hr IV .Q1H ONE Stop: 09/04/18 16:45 Lactic Acid (Lac-Hydrin 12% Lotion (225 G)) 1 gm EXT BID [facility] Last Admin: 09/04/18 11:15 Dose: 12 % Lisinopril (Zestril) 20 mg PO BID [facility] Last Admin: 09/04/18 11:16 Dose: 20 mg Metoprolol Tartrate (Lopressor) 50 mg PO BID [facility] Last Admin: 09/04/18 11:15 Dose: 50 mg Multivitamins (Hexavitamin) 1 tab PO DAILY [facility] Last Admin: 09/04/18 11:15 Dose: 1 tab Oxycodone/Acetaminophen (Percocet 5/325 Mg Tab) 1 tab PO Q4H PRN PRN Reason: Pain, moderate (4-7) Stop: 09/06/18 22:24 Last Admin: 09/04/18 11:16 Dose: 1 tab Paroxetine HCl (Paxil) 10 mg PO DAILY [facility] Rosuvastatin Calcium (Crestor) 10 mg PO HS [facility] Last Admin: 09/03/18 21:16 Dose: Not Given Thiamine HCl (Vitamin B1 Tab) 100 mg PO DAILY [facility] Last Admin: 09/04/18 11:16 Dose: 100 mg Trazodone HCl (Desyrel) 25 mg PO HS [facility] - Labs Labs: 09/04/18 07:10 09/04/18 07:10 PT 13.6 SECONDS (9.7-12.2) H 09/03/18 11:20 INR 1.2 09/03/18 11:20 APTT 35 SECONDS (21-34) H 09/03/18 11:20 - Constitutional Appears: Non-toxic - Head Exam Head Exam: NORMOCEPHALIC - Eye Exam Eye Exam: PERRL - ENT Exam ENT Exam: Mucous Membranes Dry - Neck Exam Neck Exam: absent: Lymphadenopathy - Respiratory Exam Respiratory Exam: Decreased Breath Sounds - Cardiovascular Exam Cardiovascular Exam: REGULAR RHYTHM - GI/Abdominal Exam GI & Abdominal Exam: Distended, Soft Assessment and Plan (1) Cellulitis Status: Acute (2) CAD (coronary artery disease) Status: Chronic (3) Dyslipidemia Status: Chronic (4) Hemiparesis affecting right side as late effect of cerebrovascular accident Status: Chronic (5) Hep C w/o coma, chronic Status: Chronic (6) Hypertension Status: Chronic - Assessment and Plan (Free Text) Assessment: METABOLIC ENCEPHALOPATHY / POST ICTAL/ NEW TIA cont iv antibiotics
[2018-09-04] MEDS: traZODone 25 mg Tab PO SCH (22:47)
[2018-09-05] MEDS: Piperacill/Tazo 2.25gm in Dex 2.25 GM/50 ML BAG IVPB SCH ×4 (01:59→19:41)
[2018-09-05 07:05] LABS: BASO # 0.1 K/uL (0.0-0.2); BASO % 0.6 % (0.0-2.0); EOS # 0.2 K/uL (0.0-0.7); EOS % 2.2 % (0.0-4.0); HEMOGLOBIN 14.4 g/dL (12.0-18.0); LYMPH # 1.5 K/uL (1.0-4.3); LYMPH % 16.9 % (20.0-40.0); MEAN CELL VOLUME 92.9 fL (80.0-94.0); MEAN CORPUSCULAR HEMOGLOBIN 31.8 pg (27.0-31.0); MEAN CORPUSCULAR HGB CONC 34.3 g/dL (33.0-37.0); MEAN PLATELET VOLUME 8.9 fL (7.2-11.7); MONO # 0.7 K/uL (0.0-0.8); MONO % 8.7 % (0.0-10.0); NEUT # 6.2 K/uL (1.8-7.0); NEUT % 71.6 % (50.0-75.0); RBC 4.51 Mil/uL (4.40-5.90); RED CELL DISTRIBUTION WIDTH 13.4 % (11.5-14.5); WHITE BLOOD COUNT 8.6 K/uL (4.8-10.8)
[2018-09-05 07:27] LABS: ALB/GLOB RATIO 1.1 (1.0-2.1); ALBUMIN 2.7 g/dL (3.5-5.0); ALT/SGPT 40 U/L (21-72); AST/SGOT 55 U/L (17-59); BLOOD UREA NITROGEN 11 mg/dL (9-20); CALCIUM 8.5 mg/dl (8.6-10.4); GFR NON-AFRICAN AMERICAN > 60
[2018-09-05] MEDS ORDERED: Albuterol-Ipratrop 3 mg / 0.5 (3 ml) UD INH STA (09:07)
--- NOTE | 2018-09-05 09:13 | CON ---
DATE: 09/04/2018 DATE OF ADMISSION: 09/03/2018 TIME OF EVALUATION: 7:10 a.m. ATTENDING PHYSICIAN: ____. LOCATION: Room number 657, bed B. REASON FOR CONSULTATION: Change in mental status. CHIEF COMPLAINT: The patient was brought into [facility] with a history of change in mental status as per his friend. From neurological point of view, I was called in to evaluate him for further management. HISTORY OF PRESENT ILLNESS: The patient is a 73-year-old right-handed male brought into [facility]. As per his friend, he noticed him and he found him generalized weak with change in mental status. No history of fall. No history of trauma to his head. No history of loss of consciousness. No history of involuntary movements or bowel or bladder incontinence at the scene. The patient denies any loss of consciousness in the past. No history of seizures. History of stroke in 2013 manifesting with right-sided weakness, arm more than his leg. He has been walking independently. At times, he has been using the cane at home. At present, denies headache. No visual or bulbar dysfunction. He denies any change in mental status at present. PAST MEDICAL HISTORY: As stated above with hypertension, hepatitis C, alcohol abuse, [place] in the past. SOCIAL HISTORY: Still he drinks lot of beers and lot of parties with girlfriends. ALLERGIES: NO KNOWN ALLERGIES. REVIEW OF SYSTEMS: A 12-point system being reviewed. From neuro, change in mental status. MEDICATIONS: Aspirin, Crestor, folic acid, vitamins, Lopressor, Percocet, Protonix, IV fluids, vancomycin, Zestril, and thiamine supplements. PHYSICAL EXAMINATION: VITAL SIGNS: Blood pressure 121/81, mean artery pressure of 94, respiratory rate 18, temperature 97.8, pulse rate 97 and regular. NECK: Supple. No carotid bruits. HEART: Sounds regular. CHEST: Fair air entry. EXTREMITIES: Hyperemic weeping ulcer from knee down. NEUROLOGIC EXAMINATION: Mental status exam, he is awake, alert and oriented to person, place and time. No retrograde or antegrade amnesia. No confabulation. No depression. No suicidal ideation. Cranial nerve examination; visual field intact. Responds to visual threat on either side. Extraocular movement markedly decreased. Visual field intact. No facial sensory deficit. Significant facial asymmetry manifesting with right nasolabial fold flattening. Tongue is moist. Good gag. Motor examination, he could lift the left upper extremity against the gravity. Right arm is restricted due to the stroke and increased tone on his right side. He was able to lift both the lower extremities against the gravity with left more than his right side. Deep tendon reflexes; the biceps, brachialis, triceps 2+ on his right side; right knee 3+; left knee 2+; ankles are absent. Plantars are equivocal response on both sides. 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 Coordination; [id number] test is intact. Mild distal sensory tremor noted on outstretched hand with eyes closed. CONCLUSION: The patient has been presenting with change in mental status, probably secondary to his metabolic event complicated with cellulitis. However, other causes from neurological point of view should be ruled out including transient ischemic attack from posterior cerebral artery territory or postictal phenomena. DIAGNOSTIC DATA: Workup, CT of the head reviewed. General atrophy with encephalomalacia over the left MCA territory distribution. EKG, normal sinus rhythm with right bundle-branch block. LABORATORY DATA: Blood workup; WBC 12.6, hemoglobin 15.6, hematocrit 45.2, platelet 263. PT 13.6, INR 1.2, PTT 35. ABG; pH is 7.4, pO2 35, pCO2 32, bicarbonate 21.5, sat is 74.9. Sodium 125, potassium 4.5, chloride 92, bicarbonate 21, BUN 9, creatinine 0.5, osmolality 266, CRP 8.4, BNP 2410, vitamin B12 971, vitamin D 440. Procalcitonin more than 20. Urine normal except osmolality is 221. Tox screen negative. Hep C antibody reactive. RECOMMENDATIONS: 1. MRI of the brain to rule out any new ischemic process. 2. Carotid Doppler to assess the stenosis. 3. EEG to rule out any paroxysmal activities. 4. Hydration. Correct all his electrolytes including blood gases, supplemental oxygen to be given. 5. The patient should be on vitamin B1 because of the alcohol abuse. The patient should be benefited with social service evaluation for abstinence of alcohol. 6. The patient should be on DVT prophylaxis. Cellulitis should be treated with antibiotic as per ID recommendation. 7. The patient will be followed closely with you. Shahzad Sommer MD [facility] # [id number]
--- NOTE | 2018-09-05 09:48 | HP ---
HISTORY OF PRESENT ILLNESS: The patient presented to the hospital with chief complaint of cellulitis in lower extremity. The patient came to ER, advised admission. The patient has history of alcohol intake. The patient went to the [facility] for care. PHYSICAL EXAMINATION: GENERAL: The patient is awake, alert, oriented. VITAL SIGNS: Temperature 98, pulse 90. HEENT: Within normal limits NECK: Supple. CHEST: Symmetrical. HEART: Regular. ABDOMEN: Soft. EXTREMITIES: cellulitis. IMPRESSION AND PLAN: The patient suffers from cellulitis. The patient is to bed rest, supportive care. Irina Chavez MD
--- NOTE | 2018-09-05 10:17 | CP.PCM.PN ---
Subjective - Date & Time of Evaluation Date of Evaluation: 09/05/18 Time of Evaluation: 14:27 - Subjective Subjective: Patient seen and examined at bedside. No overnight events reported. Overall he states he is not feeling well. He does complain of SOB. He denies any headache, chest pain, abdominal pain, changes in bowel habits, nausea, or any urinary symptoms. Objective - Vital Signs/Intake and Output Vital Signs (last 24 hours): Temp Pulse Resp BP Pulse Ox 98.1 F 110 H 18 119/78 100 09/05/18 07:05 09/05/18 08:00 09/05/18 07:05 09/05/18 07:05 09/05/18 07:05 Intake and Output: 09/05/18 09/05/18 06:59 18:59 Intake Total 1210 Output Total 750 Balance 460 - Medications Medications: Current Medications Acetaminophen (Tylenol 325mg Tab) 650 mg PO Q6 PRN PRN Reason: Pain, Mild (1-3) Last Admin: 09/05/18 08:19 Dose: 650 mg Aspirin (Aspirin Chewable) 81 mg PO DAILY [facility] Last Admin: 09/04/18 11:14 Dose: 81 mg Folic Acid (Folic Acid) 1 mg PO DAILY [facility] Last Admin: 09/04/18 11:14 Dose: 1 mg Hydroxyzine HCl (Atarax) 25 mg PO Q6 PRN PRN Reason: Agitation Vancomycin/Sodium Chloride (Vancomycin 1 Gm/Ns 200 Ml) 1 gm in 200 mls @ 133.333 mls/hr IVPB Q24H [facility]; Protocol Last Admin: 09/04/18 12:30 Dose: 133.333 mls/hr Piperacillin Sod/Tazobactam Sod (Zosyn 2.25 Gm Iv Premix) 2.25 gm in 50 mls @ 100 mls/hr IVPB Q6H [facility]; Protocol Last Admin: 09/05/18 08:15 Dose: 100 mls/hr Lactic Acid (Lac-Hydrin 12% Lotion (225 G)) 1 gm EXT BID [facility] Last Admin: 09/04/18 18:00 Dose: 1 applic Lisinopril (Zestril) 20 mg PO BID [facility] Last Admin: 09/04/18 19:00 Dose: Not Given Metoprolol Tartrate (Lopressor) 50 mg PO BID [facility] Last Admin: 09/04/18 19:00 Dose: Not Given Multivitamins (Hexavitamin) 1 tab PO DAILY [facility] Last Admin: 09/04/18 11:15 Dose: 1 tab Oxycodone/Acetaminophen (Percocet 5/325 Mg Tab) 1 tab PO Q4H PRN PRN Reason: Pain, moderate (4-7) Stop: 09/06/18 22:24 Last Admin: 09/04/18 11:16 Dose: 1 tab Paroxetine HCl (Paxil) 10 mg PO DAILY [facility] Last Admin: 09/04/18 18:00 Dose: 10 mg Rosuvastatin Calcium (Crestor) 10 mg PO HS [facility] Last Admin: 09/04/18 22:47 Dose: 10 mg Thiamine HCl (Vitamin B1 Tab) 100 mg PO DAILY [facility] Last Admin: 09/04/18 11:16 Dose: 100 mg Trazodone HCl (Desyrel) 25 mg PO HS [facility] Last Admin: 09/04/18 22:47 Dose: 25 mg - Labs Labs: 09/05/18 06:46 09/05/18 06:46 PT 13.6 SECONDS (9.7-12.2) H 09/03/18 11:20 INR 1.2 09/03/18 11:20 APTT 35 SECONDS (21-34) H 09/03/18 11:20 - Constitutional Appears: Chronically Ill - Head Exam Head Exam: ATRAUMATIC, NORMAL INSPECTION, NORMOCEPHALIC - Eye Exam Eye Exam: Normal appearance - ENT Exam ENT Exam: Mucous Membranes Moist - Neck Exam Neck Exam: Normal Inspection - Respiratory Exam Respiratory Exam: Wheezes (Diffuse B/L. ). absent: Accessory Muscle Use, Clear to Ausculation Bilateral, Rales, Stridor - Cardiovascular Exam Cardiovascular Exam: RRR, +S1, +S2 - GI/Abdominal Exam GI & Abdominal Exam: Soft, Normal Bowel Sounds. absent: Tenderness - Extremities Exam Extremities Exam: Pedal Edema Additional comments: Lower Extremity Erythematous, weeping, and tender to palpation. - Back Exam Back Exam: absent: CVA tenderness (L), CVA tenderness (R) - Neurological Exam Neurological Exam: Awake, Oriented x3 - Psychiatric Exam Psychiatric exam: Normal Affect - Skin Skin Exam: Warm. absent: Intact (Lower Ext. ), Normal Color Additional comments: Multiple area of Ecchymosis Assessment and Plan - Assessment and Plan (Free Text) Assessment: This is a 73 yo male with chronic lower extremity cellulitis Plan: Lower Extremity Cellulitis; bilateral -dopplers negative for DVT -vascular surgery consult. Dr. Garza. recs appreciated. -hba1c 5.2 -elevate legs/compression stockings -ID consult. Dr. Muhammad. recs appreciated. -vancomycin IV 1g Q24H -zosyn IV 2.25 Q8H -procalcitonin negative -CXR negative CHF (Systolic) ECHO (09/03/18): EF 30-35% w/ mild Aortic Stenosis. Metoprolol Tartrate changed to Succinate 50mg PO Daily Cont. HCTz, Lisinopril, ASA 81 2gram Salt Restriction, Fluid Restriction. I/O Fall -cpk [address] -head ct pending shows no acute process; encaphalomalacia -PT/OT; appreciate recs Wheezing -[facility] DuoNebs Depression Psych Consulted, recs appreciated. Cont. Hydroxyzine, Paxil, Trazadone. Hx of HTN -cardiology consul (Dr. Guy) t; appreciate recs -c/w home meds -Metoprolol Tartrate changed to Succinate. tachycardia; resolved -1 x dose of metoprolol in ER -EKG; chronic LBBB -trops x 3 negative -BNP 2420; elevated hx of CVA -neurology consult. Dr. Sommer. recs appreciated. -PT/OT -Continue Statin hx of alcohol abuse -[facility] protocol -psychiatry consult. Dr. Collins. recs appreciated. -seizure precautions -aspiration precautions -fall precautions -thiamine, folate, mv daily -b12 and folate WNL hyponatremia (Resolved) -serum osmo -urine osmo 221; low -urine sodium below 5 obesity -hgb a1c 5.2 -lipid panel shows trig 50, chol 79, LDL 37, HDL 47 GI/DVT ppx -GI prophylaxis not indicated -Lovenox Case discussed and seen with Dr. Scott Hoyt, PGY-2
[2018-09-05] MEDS: Multiple Vitamins Tab PO SCH (10:24)
[2018-09-05] MEDS: Ammonium Lactate 12% Lotion (225 g) EXT SCH ×2 (10:25→18:29)
[2018-09-05] MEDS: Vancomycin 1 gm/NS 200 ml 1 GM/200 ML BAG IVPB SCH (11:56)
[2018-09-05] MEDS ORDERED: Albuterol-Ipratrop 3 mg / 0.5 (3 ml) UD INH SCH (14:00)
[2018-09-05] MEDS: Albuterol-Ipratrop 3 mg / 0.5 (3 ml) UD INH SCH (19:05)
--- NOTE | 2018-09-05 19:52 | CP.PCM.PN ---
Subjective - Date & Time of Evaluation Date of Evaluation: 09/05/18 Time of Evaluation: 08:00 - Subjective Subjective: cellulitis persists less confused weak and bedridden Objective - Vital Signs/Intake and Output Vital Signs (last 24 hours): Temp Pulse Resp BP Pulse Ox 97.4 F L 79 20 111/83 96 09/05/18 15:00 09/05/18 19:21 09/05/18 15:00 09/05/18 15:00 09/05/18 15:00 Intake and Output: 09/05/18 09/06/18 18:59 06:59 Intake Total 700 Balance 700 - Medications Medications: Current Medications Acetaminophen (Tylenol 325mg Tab) 650 mg PO Q6 PRN PRN Reason: Pain, Mild (1-3) Last Admin: 09/05/18 08:19 Dose: 650 mg Albuterol/Ipratropium (Duoneb 3 Mg/0.5 Mg (3 Ml) Ud) 3 ml INH RQ6 [facility] Stop: 09/07/18 20:01 Last Admin: 09/05/18 19:05 Dose: 3 ml Aspirin (Aspirin Chewable) 81 mg PO DAILY [facility] Last Admin: 09/05/18 10:24 Dose: 81 mg Enoxaparin Sodium (Lovenox) 40 mg SC DAILY [facility] Folic Acid (Folic Acid) 1 mg PO DAILY [facility] Last Admin: 09/05/18 10:25 Dose: 1 mg Hydroxyzine HCl (Atarax) 25 mg PO Q6 PRN PRN Reason: Agitation Vancomycin/Sodium Chloride (Vancomycin 1 Gm/Ns 200 Ml) 1 gm in 200 mls @ 133.333 mls/hr IVPB Q24H [facility]; Protocol Last Admin: 09/05/18 11:56 Dose: 133.333 mls/hr Piperacillin Sod/Tazobactam Sod (Zosyn 2.25 Gm Iv Premix) 2.25 gm in 50 mls @ 100 mls/hr IVPB Q6H [facility]; Protocol Last Admin: 09/05/18 19:41 Dose: 100 mls/hr Lactic Acid (Lac-Hydrin 12% Lotion (225 G)) 1 gm EXT BID [facility] Last Admin: 09/05/18 18:29 Dose: 1 applic Lisinopril (Zestril) 20 mg PO DAILY [facility] Metoprolol Succinate (Toprol Xl) 50 mg PO DAILY [facility] Metoprolol Tartrate (Lopressor) 50 mg PO ONCE ONE Stop: 09/05/18 20:01 Last Admin: 09/05/18 19:41 Dose: 50 mg Multivitamins (Hexavitamin) 1 tab PO DAILY [facility] Last Admin: 09/05/18 10:24 Dose: 1 tab Oxycodone/Acetaminophen (Percocet 5/325 Mg Tab) 1 tab PO Q4H PRN PRN Reason: Pain, moderate (4-7) Stop: 09/06/18 22:24 Last Admin: 09/04/18 11:16 Dose: 1 tab Paroxetine HCl (Paxil) 10 mg PO DAILY [facility] Last Admin: 09/05/18 10:24 Dose: 10 mg Rosuvastatin Calcium (Crestor) 10 mg PO HS [facility] Last Admin: 09/04/18 22:47 Dose: 10 mg Thiamine HCl (Vitamin B1 Tab) 100 mg PO DAILY [facility] Last Admin: 09/05/18 10:24 Dose: 100 mg Trazodone HCl (Desyrel) 25 mg PO HS [facility] Last Admin: 09/04/18 22:47 Dose: 25 mg - Labs Labs: 09/05/18 06:46 09/05/18 06:46 PT 13.6 SECONDS (9.7-12.2) H 09/03/18 11:20 INR 1.2 09/03/18 11:20 APTT 35 SECONDS (21-34) H 09/03/18 11:20 - Constitutional Appears: Cachectic, Chronically Ill - Head Exam Head Exam: NORMOCEPHALIC - Eye Exam Eye Exam: PERRL - ENT Exam ENT Exam: Mucous Membranes Dry - Respiratory Exam Respiratory Exam: Decreased Breath Sounds - Cardiovascular Exam Cardiovascular Exam: REGULAR RHYTHM - GI/Abdominal Exam GI & Abdominal Exam: Distended - Exam Exam: NORMAL INSPECTION - Extremities Exam Extremities Exam: Pedal Edema, Tenderness - Back Exam Back Exam: rash noted - Neurological Exam Neurological Exam: Awake Assessment and Plan (1) Cellulitis Status: Acute (2) CAD (coronary artery disease) Status: Chronic (3) Dyslipidemia Status: Chronic (4) Hemiparesis affecting right side as late effect of cerebrovascular accident Status: Chronic (5) Hep C w/o coma, chronic Status: Chronic (6) Hypertension Status: Chronic - Assessment and Plan (Free Text) Assessment: iIV rx reordered appears improved cellulitis persists
[2018-09-05] MEDS: traZODone 25 mg Tab PO SCH (21:55)
[2018-09-06] MEDS: Albuterol-Ipratrop 3 mg / 0.5 (3 ml) UD INH SCH ×4 (01:33→19:28)
[2018-09-06] MEDS: Piperacill/Tazo 2.25gm in Dex 2.25 GM/50 ML BAG IVPB SCH ×4 (03:00→19:34)
[2018-09-06 06:41] LABS: BASO # 0.1 K/uL (0.0-0.2); EOS # 0.2 K/uL (0.0-0.7); EOS % 1.9 % (0.0-4.0); HEMOGLOBIN 14.6 g/dL (12.0-18.0); LYMPH # 1.6 K/uL (1.0-4.3); LYMPH % 17.5 % (20.0-40.0); MEAN CELL VOLUME 92.6 fL (80.0-94.0); MEAN CORPUSCULAR HEMOGLOBIN 32.4 pg (27.0-31.0); MONO # 0.7 K/uL (0.0-0.8); MONO % 8.2 % (0.0-10.0); NEUT # 6.5 K/uL (1.8-7.0); NEUT % 71.4 % (50.0-75.0); RBC 4.5 Mil/uL (4.40-5.90); RED CELL DISTRIBUTION WIDTH 13.1 % (11.5-14.5)
[2018-09-06 07:01] LABS: ALT/SGPT 41 U/L (21-72); AST/SGOT 36 U/L (17-59); BLOOD UREA NITROGEN 12 mg/dL (9-20); CALCIUM 8.4 mg/dl (8.6-10.4); GFR NON-AFRICAN AMERICAN > 60
[2018-09-06] MEDS: Metoprolol Succinate 50 mg XL Tab PO SCH (09:38)
[2018-09-06] MEDS: Enoxaparin 40 mg Syringe SC SCH (09:39)
[2018-09-06] MEDS: Multiple Vitamins Tab PO SCH (09:39)
[2018-09-06] MEDS: Ammonium Lactate 12% Lotion (225 g) EXT SCH ×2 (09:51→18:37)
[2018-09-06] MEDS: Vancomycin 1 gm/NS 200 ml 1 GM/200 ML BAG IVPB SCH (13:30)
[2018-09-06] MEDS: traZODone 25 mg Tab PO SCH (22:06)
[2018-09-07] MEDS: Albuterol-Ipratrop 3 mg / 0.5 (3 ml) UD INH SCH ×4 (01:15→19:17)
[2018-09-07 09:32] LABS: BASO # 0.1 K/uL (0.0-0.2); BASO % 1.1 % (0.0-2.0); EOS # 0.2 K/uL (0.0-0.7); EOS % 1.8 % (0.0-4.0); HEMOGLOBIN 14.6 g/dL (12.0-18.0); LYMPH # 1.4 K/uL (1.0-4.3); LYMPH % 15.9 % (20.0-40.0); MEAN CELL VOLUME 92.7 fL (80.0-94.0); MEAN CORPUSCULAR HEMOGLOBIN 31.9 pg (27.0-31.0); MEAN CORPUSCULAR HGB CONC 34.5 g/dL (33.0-37.0); MEAN PLATELET VOLUME 9.5 fL (7.2-11.7); MONO # 0.8 K/uL (0.0-0.8); MONO % 9.2 % (0.0-10.0); NEUT # 6.5 K/uL (1.8-7.0); NRBC % 0.1 % (0.0-2.0); RBC 4.56 Mil/uL (4.40-5.90); RED CELL DISTRIBUTION WIDTH 13.2 % (11.5-14.5)
[2018-09-07 09:48] LABS: ALBUMIN 2.9 g/dL (3.5-5.0); ALT/SGPT 46 U/L (21-72); AST/SGOT 32 U/L (17-59); BLOOD UREA NITROGEN 13 mg/dL (9-20); CALCIUM 8.4 mg/dl (8.6-10.4); GFR NON-AFRICAN AMERICAN > 60
[2018-09-07] MEDS: Enoxaparin 40 mg Syringe SC SCH (09:59)
[2018-09-07] MEDS: Metoprolol Succinate 50 mg XL Tab PO SCH (10:00)
[2018-09-07] MEDS: Multiple Vitamins Tab PO SCH (10:01)
[2018-09-07] MEDS: Ammonium Lactate 12% Lotion (225 g) EXT SCH ×2 (10:03→18:12)
[2018-09-07] MEDS: Vancomycin 1 gm/NS 200 ml 1 GM/200 ML BAG IVPB SCH (12:00)
--- NOTE | 2018-09-07 16:57 | CP.PCM.PN ---
Subjective - Date & Time of Evaluation Date of Evaluation: 09/07/18 Time of Evaluation: 07:00 - Subjective Subjective: afeb on IV antibiotics rx renewed Objective - Vital Signs/Intake and Output Vital Signs (last 24 hours): Temp Pulse Resp BP Pulse Ox 97 F L 89 20 137/89 97 09/07/18 07:00 09/07/18 16:00 09/07/18 07:00 09/07/18 07:00 09/07/18 07:00 Intake and Output: 09/07/18 09/07/18 06:59 18:59 Intake Total 550 Output Total 403 Balance 147 - Medications Medications: Current Medications Acetaminophen (Tylenol 325mg Tab) 650 mg PO Q6 PRN PRN Reason: Pain, Mild (1-3) Last Admin: 09/05/18 08:19 Dose: 650 mg Albuterol/Ipratropium (Duoneb 3 Mg/0.5 Mg (3 Ml) Ud) 3 ml INH RQ6 [facility] Stop: 09/07/18 20:01 Last Admin: 09/07/18 13:45 Dose: 3 ml Aspirin (Aspirin Chewable) 81 mg PO DAILY [facility] Last Admin: 09/07/18 10:01 Dose: 81 mg Enoxaparin Sodium (Lovenox) 40 mg SC DAILY [facility] Last Admin: 09/07/18 09:59 Dose: 40 mg Folic Acid (Folic Acid) 1 mg PO DAILY [facility] Last Admin: 09/07/18 10:01 Dose: 1 mg Hydroxyzine HCl (Atarax) 25 mg PO Q6 PRN PRN Reason: Agitation Last Admin: 09/07/18 10:02 Dose: 25 mg Lactic Acid (Lac-Hydrin 12% Lotion (225 G)) 1 gm EXT BID [facility] Last Admin: 09/07/18 10:03 Dose: 1 applic Lisinopril (Zestril) 20 mg PO DAILY [facility] Last Admin: 09/07/18 10:07 Dose: 20 mg Metoprolol Succinate (Toprol Xl) 50 mg PO DAILY [facility] Last Admin: 09/07/18 10:00 Dose: 50 mg Multivitamins (Hexavitamin) 1 tab PO DAILY [facility] Last Admin: 09/07/18 10:01 Dose: 1 tab Paroxetine HCl (Paxil) 10 mg PO DAILY [facility] Last Admin: 09/07/18 10:01 Dose: 10 mg Rosuvastatin Calcium (Crestor) 10 mg PO HS [facility] Last Admin: 09/06/18 22:06 Dose: 10 mg Thiamine HCl (Vitamin B1 Tab) 100 mg PO DAILY [facility] Last Admin: 09/07/18 10:01 Dose: 100 mg Trazodone HCl (Desyrel) 25 mg PO HS [facility] Last Admin: 09/06/18 22:06 Dose: 25 mg - Labs Labs: 09/07/18 09:24 09/07/18 09:24 PT 13.6 SECONDS (9.7-12.2) H 09/03/18 11:20 INR 1.2 09/03/18 11:20 APTT 35 SECONDS (21-34) H 09/03/18 11:20 - Constitutional Appears: Confused, Chronically Ill - Head Exam Head Exam: NORMOCEPHALIC - Eye Exam Eye Exam: absent: Scleral icterus - ENT Exam ENT Exam: Mucous Membranes Dry - Neck Exam Neck Exam: absent: Lymphadenopathy - Respiratory Exam Respiratory Exam: Decreased Breath Sounds - Cardiovascular Exam Cardiovascular Exam: REGULAR RHYTHM - GI/Abdominal Exam GI & Abdominal Exam: Distended, Soft - Rectal Exam Rectal Exam: Deferred - Exam Exam: NORMAL INSPECTION - Extremities Exam Extremities Exam: Pedal Edema, Tenderness - Back Exam Back Exam: absent: CVA tenderness (L), CVA tenderness (R) - Neurological Exam Neurological Exam: Alert, Awake, CN II-XII Intact. absent: Normal Gait - Psychiatric Exam Psychiatric exam: Depressed - Skin Skin Exam: Erythema Assessment and Plan (1) Cellulitis Status: Acute (2) CAD (coronary artery disease) Status: Chronic (3) Dyslipidemia Status: Chronic (4) Hemiparesis affecting right side as late effect of cerebrovascular accident Status: Chronic (5) Hep C w/o coma, chronic Status: Chronic (6) Hypertension Status: Chronic - Assessment and Plan (Free Text) Assessment: improving cellulitis COPD weakness from precv stroke IV rx renewed
[2018-09-07] MEDS ORDERED: Vancomycin 1 gm/NS 200 ml 1 GM/200 ML BAG IVPB SCH (18:00)
[2018-09-07] MEDS: traZODone 25 mg Tab PO SCH (21:44)
[2018-09-08 07:08] LABS: BASO # 0.1 K/uL (0.0-0.2); BASO % 0.9 % (0.0-2.0); EOS # 0.3 K/uL (0.0-0.7); EOS % 3.5 % (0.0-4.0); HEMOGLOBIN 14.7 g/dL (12.0-18.0); LYMPH # 1.5 K/uL (1.0-4.3); LYMPH % 19.1 % (20.0-40.0); MEAN CELL VOLUME 91.6 fL (80.0-94.0); MEAN CORPUSCULAR HEMOGLOBIN 32.1 pg (27.0-31.0); MEAN CORPUSCULAR HGB CONC 35.1 g/dL (33.0-37.0); MEAN PLATELET VOLUME 9.1 fL (7.2-11.7); MONO # 0.8 K/uL (0.0-0.8); MONO % 10.3 % (0.0-10.0); NEUT # 5.4 K/uL (1.8-7.0); NEUT % 66.2 % (50.0-75.0); NRBC % 0.1 % (0.0-2.0); RBC 4.56 Mil/uL (4.40-5.90); WHITE BLOOD COUNT 8.1 K/uL (4.8-10.8)
[2018-09-08 07:32] LABS: ALBUMIN 2.8 g/dL (3.5-5.0); ALT/SGPT 44 U/L (21-72); AST/SGOT 36 U/L (17-59); BLOOD UREA NITROGEN 13 mg/dL (9-20); CALCIUM 8.3 mg/dl (8.6-10.4); GFR NON-AFRICAN AMERICAN > 60
[2018-09-08] MEDS: Enoxaparin 40 mg Syringe SC SCH (09:31)
[2018-09-08] MEDS: Metoprolol Succinate 50 mg XL Tab PO SCH (09:32)
[2018-09-08] MEDS: Multiple Vitamins Tab PO SCH (09:32)
[2018-09-08] MEDS: Ammonium Lactate 12% Lotion (225 g) EXT SCH ×2 (09:33→18:40)
--- NOTE | 2018-09-08 11:42 | CP.PCM.PN ---
Subjective - Date & Time of Evaluation Date of Evaluation: 09/08/18 Time of Evaluation: 08:00 - Subjective Subjective: hep C viral load sent IV rx in progress Objective - Vital Signs/Intake and Output Vital Signs (last 24 hours): Temp Pulse Resp BP Pulse Ox 97.6 F 88 20 125/83 97 09/08/18 07:30 09/08/18 07:30 09/08/18 07:30 09/08/18 07:30 09/08/18 07:30 - Medications Medications: Current Medications Acetaminophen (Tylenol 325mg Tab) 650 mg PO Q6 PRN PRN Reason: Pain, Mild (1-3) Last Admin: 09/07/18 21:01 Dose: 650 mg Aspirin (Aspirin Chewable) 81 mg PO DAILY [facility] Last Admin: 09/08/18 09:32 Dose: 81 mg Enoxaparin Sodium (Lovenox) 40 mg SC DAILY [facility] Last Admin: 09/08/18 09:31 Dose: 40 mg Folic Acid (Folic Acid) 1 mg PO DAILY [facility] Last Admin: 09/08/18 09:32 Dose: 1 mg Hydroxyzine HCl (Atarax) 25 mg PO Q6 PRN PRN Reason: Agitation Last Admin: 09/08/18 09:32 Dose: 25 mg Vancomycin/Sodium Chloride (Vancomycin 1 Gm/Ns 200 Ml) 1 gm in 200 mls @ 133.333 mls/hr IVPB Q24H [facility]; Protocol Stop: 09/13/18 12:01 Lactic Acid (Lac-Hydrin 12% Lotion (225 G)) 1 gm EXT BID [facility] Last Admin: 09/08/18 09:33 Dose: 1 applic Lisinopril (Zestril) 20 mg PO DAILY [facility] Last Admin: 09/08/18 09:35 Dose: 20 mg Metoprolol Succinate (Toprol Xl) 50 mg PO DAILY [facility] Last Admin: 09/08/18 09:32 Dose: 50 mg Multivitamins (Hexavitamin) 1 tab PO DAILY [facility] Last Admin: 09/08/18 09:32 Dose: 1 tab Paroxetine HCl (Paxil) 10 mg PO DAILY [facility] Last Admin: 09/08/18 09:33 Dose: 10 mg Rosuvastatin Calcium (Crestor) 10 mg PO HS [facility] Last Admin: 09/07/18 21:44 Dose: 10 mg Thiamine HCl (Vitamin B1 Tab) 100 mg PO DAILY [facility] Last Admin: 09/08/18 09:32 Dose: 100 mg Trazodone HCl (Desyrel) 25 mg PO HS [facility] Last Admin: 09/07/18 21:44 Dose: 25 mg - Labs Labs: 09/08/18 06:42 09/08/18 06:42 PT 13.6 SECONDS (9.7-12.2) H 09/03/18 11:20 INR 1.2 09/03/18 11:20 APTT 35 SECONDS (21-34) H 09/03/18 11:20 - Constitutional Appears: Non-toxic, Chronically Ill - Head Exam Head Exam: NORMOCEPHALIC - Eye Exam Eye Exam: absent: Scleral icterus - ENT Exam ENT Exam: Mucous Membranes Dry - Neck Exam Neck Exam: absent: Lymphadenopathy - Respiratory Exam Respiratory Exam: Decreased Breath Sounds - Cardiovascular Exam Cardiovascular Exam: REGULAR RHYTHM - GI/Abdominal Exam GI & Abdominal Exam: Distended, Soft - Rectal Exam Rectal Exam: Deferred - Exam Exam: NORMAL INSPECTION - Extremities Exam Extremities Exam: Pedal Edema, Tenderness. absent: Calf Tenderness - Back Exam Back Exam: absent: CVA tenderness (L), CVA tenderness (R) Assessment and Plan (1) Cellulitis Status: Acute (2) CAD (coronary artery disease) Status: Chronic (3) Dyslipidemia Status: Chronic (4) Hemiparesis affecting right side as late effect of cerebrovascular accident Status: Chronic (5) Hep C w/o coma, chronic Status: Chronic (6) Hypertension Status: Chronic
--- NOTE | 2018-09-08 12:21 | CP.PCM.PN ---
Subjective - Date & Time of Evaluation Date of Evaluation: 09/08/18 Time of Evaluation: 12:20 - Subjective Subjective: PGY3 Note for Dr. Chavez Patient seen at bedside; he has no acute complaints; he thinks it is 1912 but he knows he is at [facility] and that he is being treated at the hospital. He denies drinking. States he has no fevers/chills, GALVAN, CP, SOB, abdominal pain, N/V/d, dyusira/freq/urg or lower extremity pain. Objective - Vital Signs/Intake and Output Vital Signs (last 24 hours): Temp Pulse Resp BP Pulse Ox 97.6 F 88 20 125/83 97 09/08/18 07:30 09/08/18 07:30 09/08/18 07:30 09/08/18 07:30 09/08/18 07:30 - Medications Medications: Current Medications Acetaminophen (Tylenol 325mg Tab) 650 mg PO Q6 PRN PRN Reason: Pain, Mild (1-3) Last Admin: 09/07/18 21:01 Dose: 650 mg Aspirin (Aspirin Chewable) 81 mg PO DAILY [facility] Last Admin: 09/08/18 09:32 Dose: 81 mg Enoxaparin Sodium (Lovenox) 40 mg SC DAILY [facility] Last Admin: 09/08/18 09:31 Dose: 40 mg Folic Acid (Folic Acid) 1 mg PO DAILY [facility] Last Admin: 09/08/18 09:32 Dose: 1 mg Hydroxyzine HCl (Atarax) 25 mg PO Q6 PRN PRN Reason: Agitation Last Admin: 09/08/18 09:32 Dose: 25 mg Vancomycin/Sodium Chloride (Vancomycin 1 Gm/Ns 200 Ml) 1 gm in 200 mls @ 133.333 mls/hr IVPB Q24H [facility]; Protocol Stop: 09/13/18 12:01 Lactic Acid (Lac-Hydrin 12% Lotion (225 G)) 1 gm EXT BID [facility] Last Admin: 09/08/18 09:33 Dose: 1 applic Lisinopril (Zestril) 20 mg PO DAILY [facility] Last Admin: 09/08/18 09:35 Dose: 20 mg Metoprolol Succinate (Toprol Xl) 50 mg PO DAILY [facility] Last Admin: 09/08/18 09:32 Dose: 50 mg Multivitamins (Hexavitamin) 1 tab PO DAILY [facility] Last Admin: 09/08/18 09:32 Dose: 1 tab Paroxetine HCl (Paxil) 10 mg PO DAILY [facility] Last Admin: 09/08/18 09:33 Dose: 10 mg Rosuvastatin Calcium (Crestor) 10 mg PO HS [facility] Last Admin: 09/07/18 21:44 Dose: 10 mg Thiamine HCl (Vitamin B1 Tab) 100 mg PO DAILY [facility] Last Admin: 09/08/18 09:32 Dose: 100 mg Trazodone HCl (Desyrel) 25 mg PO HS [facility] Last Admin: 09/07/18 21:44 Dose: 25 mg - Labs Labs: 09/08/18 06:42 09/08/18 06:42 PT 13.6 SECONDS (9.7-12.2) H 09/03/18 11:20 INR 1.2 09/03/18 11:20 APTT 35 SECONDS (21-34) H 09/03/18 11:20 Assessment and Plan - Assessment and Plan (Free Text) Assessment: Appears: Chronically Ill - Head Exam Head Exam: ATRAUMATIC, NORMAL INSPECTION, NORMOCEPHALIC - Eye Exam Eye Exam: Normal appearance - ENT Exam ENT Exam: Mucous Membranes Moist - Neck Exam Neck Exam: Normal Inspection - Respiratory Exam Respiratory Exam: Wheezes (Diffuse B/L. ). absent: Accessory Muscle Use, Clear to Ausculation Bilateral, Rales, Stridor - Cardiovascular Exam Cardiovascular Exam: RRR, +S1, +S2 - GI/Abdominal Exam GI & Abdominal Exam: Soft, Normal Bowel Sounds. absent: Tenderness - Extremities Exam Extremities Exam: Pedal Edema Additional comments: Lower Extremity Erythematous, weeping, and tender to palpation. - Back Exam Back Exam: absent: CVA tenderness (L), CVA tenderness (R) - Neurological Exam Neurological Exam: Awake, Oriented x3 - Psychiatric Exam Psychiatric exam: Normal Affect - Skin Skin Exam: Warm. absent: Intact (Lower Ext. ), Normal Color Additional comments: Multiple area of Ecchymosis Assessment and Plan - Assessment and Plan (Free Text) Assessment: This is a 73 yo male with chronic lower extremity cellulitis Plan: Lower Extremity Cellulitis; bilateral -dopplers negative for DVT -vascular surgery consult. Dr. Garza. recs appreciated. -hba1c 5.2 -elevate legs/compression stockings -ID consult. Dr. Muhammad. recs appreciated. -vancomycin IV 1g Q24H -zosyn IV 2.25 Q8H -procalcitonin negative -CXR negative CHF (Systolic) ECHO (09/03/18): EF 30-35% w/ mild Aortic Stenosis. Metoprolol Tartrate changed to Succinate 50mg PO Daily Cont. HCTz, Lisinopril, ASA 81 2gram Salt Restriction, Fluid Restriction. I/O Fall -cpk 72 -head ct pending shows no acute process; encaphalomalacia -PT/OT; appreciate recs Wheezing -SEAMUS DuoNebs Depression Psych Consulted, recs appreciated. Cont. Hydroxyzine, Paxil, Trazadone. Hx of HTN -cardiology consul (Dr. Guy) t; appreciate recs -c/w home meds -Metoprolol Tartrate changed to Succinate. tachycardia; resolved -1 x dose of metoprolol in ER -EKG; chronic LBBB -trops x 3 negative -BNP 2420; elevated hx of CVA -neurology consult. Dr. Sommer. recs appreciated. -PT/OT -Continue Statin hx of alcohol abuse -[facility] protocol -psychiatry consult. Dr. Collins. recs appreciated. -seizure precautions -aspiration precautions -fall precautions -thiamine, folate, mv daily -b12 and folate WNL hyponatremia (Resolved) -serum osmo -urine osmo 221; low -urine sodium below 5 obesity -hgb a1c 5.2 -lipid panel shows trig 50, chol 79, LDL 37, HDL 47 GI/DVT ppx -GI prophylaxis not indicated -Lovenox Patient will ultimately need [facility] 2/2 to chronic EtOH use Needs AA Thiamine/Folate daily Case discussed and seen with Dr. Chavez
[2018-09-08] MEDS: Vancomycin 1 gm/NS 200 ml 1 GM/200 ML BAG IVPB SCH (12:53)
[2018-09-08] MEDS: Albuterol-Ipratrop 3 mg / 0.5 (3 ml) UD INH SCH (19:55)
[2018-09-08] MEDS: traZODone 25 mg Tab PO SCH (22:01)
[2018-09-09] MEDS: Albuterol-Ipratrop 3 mg / 0.5 (3 ml) UD INH SCH ×4 (00:20→11:28)
[2018-09-09 02:32] VITALS: PULSE 74
[2018-09-09 07:44] LABS: BASO # 0.1 K/uL (0.0-0.2); EOS # 0.2 K/uL (0.0-0.7); EOS % 2.9 % (0.0-4.0); HEMOGLOBIN 14.8 g/dL (12.0-18.0); LYMPH # 1.4 K/uL (1.0-4.3); LYMPH % 16.6 % (20.0-40.0); MEAN CELL VOLUME 92.1 fL (80.0-94.0); MEAN CORPUSCULAR HEMOGLOBIN 31.8 pg (27.0-31.0); MEAN CORPUSCULAR HGB CONC 34.6 g/dL (33.0-37.0); MEAN PLATELET VOLUME 8.5 fL (7.2-11.7); MONO # 0.7 K/uL (0.0-0.8); MONO % 9.1 % (0.0-10.0); NEUT # 5.8 K/uL (1.8-7.0); NEUT % 70.4 % (50.0-75.0); NRBC % 0.1 % (0.0-2.0); RBC 4.66 Mil/uL (4.40-5.90); RED CELL DISTRIBUTION WIDTH 13.3 % (11.5-14.5); WHITE BLOOD COUNT 8.2 K/uL (4.8-10.8)
[2018-09-09 07:51] LABS: ALBUMIN 2.9 g/dL (3.5-5.0); ALT/SGPT 50 U/L (21-72); AST/SGOT 39 U/L (17-59); BLOOD UREA NITROGEN 13 mg/dL (9-20); CALCIUM 8.5 mg/dl (8.6-10.4); GFR NON-AFRICAN AMERICAN > 60
[2018-09-09 08:30] VITALS: RESP 18; TEMP 97.5; O2SAT 99
[2018-09-09] MEDS: Enoxaparin 40 mg Syringe SC SCH (09:15)
[2018-09-09] MEDS: Multiple Vitamins Tab PO SCH (09:15)
[2018-09-09] MEDS: Ammonium Lactate 12% Lotion (225 g) EXT SCH (09:15)
[2018-09-09] MEDS: Metoprolol Succinate 50 mg XL Tab PO SCH (09:17)
[2018-09-09] MEDS: Vancomycin 1 gm/NS 200 ml 1 GM/200 ML BAG IVPB SCH (11:22)
--- NOTE | 2018-09-09 12:01 | CP.PCM.PN ---
Subjective - Date & Time of Evaluation Date of Evaluation: 09/09/18 Time of Evaluation: 10:15 - Subjective Subjective: Medicine progress note ( Dr. Chavez's service) Patient was seen and examined at bedside. Patient was resting comfortably in bed in no acute distress. Patient denies any symptoms of chest pain, palpitations, shortness of breath, dizziness, or lower extremity pain. Patient is oriented to year, place and person. Objective - Vital Signs/Intake and Output Vital Signs (last 24 hours): Temp Pulse Resp BP Pulse Ox 97.5 F L 74 18 121/80 99 09/09/18 07:00 09/09/18 08:22 09/09/18 07:00 09/09/18 07:00 09/09/18 07:00 Intake and Output: 09/09/18 09/09/18 06:59 18:59 Intake Total 360 Output Total 600 Balance -240 - Medications Medications: Current Medications Acetaminophen (Tylenol 325mg Tab) 650 mg PO Q6 PRN PRN Reason: Pain, Mild (1-3) Last Admin: 09/08/18 17:38 Dose: 650 mg Albuterol/Ipratropium (Duoneb 3 Mg/0.5 Mg (3 Ml) Ud) 3 ml INH RQ4 [facility] Last Admin: 09/09/18 11:28 Dose: Not Given Aspirin (Aspirin Chewable) 81 mg PO DAILY [facility] Last Admin: 09/09/18 09:15 Dose: 81 mg Enoxaparin Sodium (Lovenox) 40 mg SC DAILY [facility] Last Admin: 09/09/18 09:15 Dose: 40 mg Folic Acid (Folic Acid) 1 mg PO DAILY [facility] Last Admin: 09/09/18 09:12 Dose: 1 mg Hydroxyzine HCl (Atarax) 25 mg PO Q6 PRN PRN Reason: Agitation Last Admin: 09/09/18 09:16 Dose: 25 mg Vancomycin/Sodium Chloride (Vancomycin 1 Gm/Ns 200 Ml) 1 gm in 200 mls @ 133.333 mls/hr IVPB Q24H [facility]; Protocol Stop: 09/13/18 12:01 Last Admin: 09/09/18 11:22 Dose: 133.333 mls/hr Lactic Acid (Lac-Hydrin 12% Lotion (225 G)) 1 gm EXT BID [facility] Last Admin: 09/09/18 09:15 Dose: 1 applic Lisinopril (Zestril) 20 mg PO DAILY [facility] Last Admin: 09/09/18 09:23 Dose: 20 mg Metoprolol Succinate (Toprol Xl) 50 mg PO DAILY [facility] Last Admin: 09/09/18 09:17 Dose: 50 mg Multivitamins (Hexavitamin) 1 tab PO DAILY [facility] Last Admin: 09/09/18 09:15 Dose: 1 tab Paroxetine HCl (Paxil) 10 mg PO DAILY [facility] Last Admin: 09/09/18 09:14 Dose: 10 mg Rosuvastatin Calcium (Crestor) 10 mg PO HS [facility] Last Admin: 09/08/18 22:00 Dose: 10 mg Thiamine HCl (Vitamin B1 Tab) 100 mg PO DAILY [facility] Last Admin: 09/09/18 09:17 Dose: 100 mg Trazodone HCl (Desyrel) 25 mg PO [facility] Last Admin: 09/08/18 22:01 Dose: 25 mg - Labs Labs: 09/09/18 07:34 09/09/18 07:34 PT 13.6 SECONDS (9.7-12.2) H 09/03/18 11:20 INR 1.2 09/03/18 11:20 APTT 35 SECONDS (21-34) H 09/03/18 11:20 - Constitutional Appears: Well, No Acute Distress - Head Exam Head Exam: ATRAUMATIC, NORMAL INSPECTION - Eye Exam Eye Exam: EOMI, Normal appearance - ENT Exam ENT Exam: Mucous Membranes Moist - Respiratory Exam Respiratory Exam: Clear to Ausculation Bilateral, NORMAL BREATHING PATTERN. absent: Prolonged Expiratory Phase, Rhonchi, Wheezes, Respiratory Distress - Cardiovascular Exam Cardiovascular Exam: REGULAR RHYTHM, +S1, +S2 - GI/Abdominal Exam GI & Abdominal Exam: Soft, Normal Bowel Sounds. absent: Guarding, Rigid, Tenderness - Extremities Exam Additional comments: Improving Bilateral LE cellulitis with mild edema. - Neurological Exam Neurological Exam: Alert, Awake, Oriented x3 - Psychiatric Exam Psychiatric exam: Normal Affect - Skin Skin Exam: Normal Color Assessment and Plan (1) Cellulitis Assessment & Plan: Bilaeral LE Consultation: Dr. Sabina PROCTOR -Help appreciated Imaging: -dopplers negative for DVT -Chest X-ray: No active disease Labs: - Blood culture: Negative after 5 days - No elevated WBC - Procalcitonin negative Management -Bilateral leg elevation/compression stockings -vancomycin IV 1g Q24H -zosyn IV 2.25 Q8H ( d/c) -Plans to discharge to [facility] on Bactrim DS 1 tab PO bid for 2 weeks Status: Acute (2) Wheezing Assessment & Plan: Duonebs 3ML INH RQ6H Status: Acute (3) Systolic CHF, chronic Assessment & Plan: BNP on admission: 2410 ECHO (09/03/18): EF 30-35% w/ mild Aortic Stenosis. Metoprolol Tartrate changed to Succinate 50mg PO Daily Continue HCTZ 25mg PO daily, Lisinopril 20mg PO daily and ASA 81mg PO daily 2gram Salt Restriction, Fluid Restriction. Monitor I/O Status: Acute (4) Status post fall Assessment & Plan: CPK: 73, WNL Head CT: Moderate nonspecific white matter changes. Generalized atrophy. Hypodense region consistent with encephalomalacia at the level of the medial left temporal lobe. Diffuse atrophy with prominence of the ventricles and sulci noted. No mass effect or edema. Intracranial atherosclerosis. Scattered periventricular and subcortical white matter hypodensities, which are nonspecific, but often seen with chronic microvascular ischemic disease. Hypodense region consistent with encephalomalacia at the level of the medial left temporal lobe. Please note that MRI with diffusion imaging is more sens itive in the detection of acute ischemic event. Brain MRI: Severe chronic microvascular changes are seen in the periventricular white matter. There is severe atrophy. No acute intracranial findings. PT/OT Status: Acute (5) History of CVA (cerebrovascular accident) Assessment & Plan: Neurology consult. Dr. Sommer. [place] appreciated. -PT/OT -Continue Statin Status: Acute (6) History of alcohol abuse Assessment & Plan: -[facility] protocol -psychiatry consult. Dr. Collins. [place] appreciated. -seizure precautions -aspiration precautions -fall precautions -thiamine, folate, multivitamin daily -b12 and folate WNL Status: Acute (7) LBBB (left bundle branch block) Assessment & Plan: Chronic No EKG changes compare to previous Troponin negative X3 Status: Acute (8) Hyponatremia Assessment & Plan: Resolved -serum osmo -urine osmo 221; low -urine sodium below 5 Status: Acute (9) Obesity (BMI 30.0-34.9) Assessment & Plan: -HgbA1C: 5.2 -Lipid Panel: trig 50, chol 79, LDL 37, HDL 47 Status: Acute (10) Prophylactic measure Assessment & Plan: GI: Not indicated DVT: Lovenox 40mg SC daily Disposition: Patient to be discharged to [facility] today Please continue on home medication as prescribed 1. Toprol XL 50mg PO daily 2. Lisinorpil 20mg PO daily 3. Paxil 20mg PO daily 4. Crestor 10mg PO HS 5. Asa 81mg PO daily 6. Thiamine 100mg PO BID 7. Folic acid 1mg Tab daily 8. Trazodone 25mg PO HS 9. Vitamin D and B12 supplement Use the following medication for Two weeks: - Bactrim DS 2 Tabs Q12H for 14 days, please take with yogurt Patient will need PT/OT while at [facility] Patient needs to be on a low salt diet Please follow up with Dr. Chavez in 2 weeks Please take care All plans and management discussed with Dr. Chavez Status: Acute
[2018-09-09 14:13] VITALS: BP 140/70
--- NOTE | 2018-09-12 10:42 | EEG ---
DATE: 09/04/2018 This is a 16-channel electroencephalogram of awake and drowsy adult. During the study, photic stimulation was performed. Hyperventilation was not performed. The resting electroencephalogram consist 20 to 30 microvolt diffuse 3 to 6 high delta mixed with low theta activities noted in posterior dominant rhythm. The EKG activities noted with sinus bradycardia with tall QRS complexes. Some movement artifact contaminated the background rhythm. The photic stimulation did not evoke driving response noted at 2 to 20 Hz. IMPRESSION: This is an abnormal electroencephalogram because of persistent slowing throughout the records suggestive of bilateral cerebral dysfunction. This probably is secondary to metabolic, vascular or degenerative process. Please correlate the findings with the neurological and the radiological studies. Shahzad Sommer MD
--- NOTE | 2018-09-16 08:59 | DS ---
The patient was hospitalized with chief complaint of cellulitis in lower extremity. The patient is on bedrest, IV antibiotics, supportive care, rehab. Discharged to be followed as an outpatient. DIAGNOSIS: Cellulitis. Irina Chavez MD
== END 2018-09-09 15:00 | DRG 602 ==
LOC: C.ER 09:55 → C.9E 12:34 → C.6T 14:17
PROVIDERS: ADMIT Internal Medicine Pulmonary Disease; ATTEND Internal Medicine Pulmonary Disease
DX: L03.115 Cellulitis of right lower limb (principal); G93.41 Metabolic encephalopathy; E87.1 Hypo-osmolality and hyponatremia; F33.1 Major depressive disorder, recurrent, moderate; I69.251 Hemiplegia and hemiparesis following other nontraumatic intracranial hemorrhage affecting right dominant side; L03.116 Cellulitis of left lower limb; Z74.01 Bed confinement status; J44.9 Chronic obstructive pulmonary disease, unspecified; I25.2 Old myocardial infarction; I25.10 Atherosclerotic heart disease of native coronary artery without angina pectoris; Z87.891 Personal history of nicotine dependence; Z91.14 Patient's other noncompliance with medication regimen; Z95.5 Presence of coronary angioplasty implant and graft; I10 Essential (primary) hypertension; F10.10 Alcohol abuse, uncomplicated; E78.5 Hyperlipidemia, unspecified; E66.9 Obesity, unspecified; B18.2 Chronic viral hepatitis C; E11.51 Type 2 diabetes mellitus with diabetic peripheral angiopathy without gangrene; I44.7 Left bundle-branch block, unspecified

== ENCOUNTER 2018-09-16 10:57 | Inpatient (IN) | payer MEDICARE ==
[2018-09-16 10:57] VITALS: BMI 26.4
[2018-09-16] MEDS ORDERED: Heparin25000 units/250ml 1/2NS 25,000 UNITS/250 ML BAG IV STA (11:10)
--- NOTE | 2018-09-16 11:10 | C.PDOC ---
History Of Present Illness Patient is a 73 y/o male with PMHx of HTN, DM, CVA, s/p cardiac stent, brought in by ambulance for cardiac arrest. As per EMS, patient went into cardiac arrest at 9:53am witnessed at the care home. Patients friend who was bedside at the time noted patient was eating breakfast, at baseline, and began complaining of feeling funny then became unresponsive. At the care home patient was found in asystole, and CPR was initiated. Patient received 1 epi, after which rhythm converted to PEA, and ROSC was established at 10:14am. He also received versed 10mgs IVP, IVF 0.9 NSS 300ml in the field. Patient was spontaneously breathing en route as per EMS. ET tube placed and IO access established prior to arrival. On arrival patient is unresponsive, history unobtainable from patient. No family at bedside. Time Seen by Provider: 09/16/18 11:08 Chief Complaint (Nursing): Cardiac Arrest History Per: EMS Reason For Code Blue: Unresponsive Circumstances: Brought To ED By EMS Arrest Witnessed By: Family, Nurse CPR Initiated Prior To MD Arrival?: Yes Treatment Initiated Prior To MD Arrival: Yes: CPR, Intubation, ACLS Medication Initiation, IV Access Medications Given Prior To MD Arrival: Yes: Epinephrine - Initial Findings Mentation: Unresponsive Past Medical History Reviewed: Historical Data, Nursing Documentation, Vital Signs - Medical History PMH: Anxiety, CVA, Diabetes (?), Fractures, Hepatitis (C), HTN Denies: Chronic Kidney Disease Surgical History: Coronary Stent - [facility] Procedures ALCOHOL DETOXIFICATION (02/08/14) DEBRIDEMENT OF NAIL, NAIL BED OR NAIL FOLD (02/17/14) GAIT TRAINING/FUNCTIONAL AMBULATION TREATMENT (01/21/16) HOME MANAGEMENT TREATMENT (01/21/16) OCCUPATIONAL THERAPY (02/17/14) OTHER SPEECH THERAPY (02/17/14) PHYSICAL THERAPY NEC (02/17/14) RECREATIONAL THERAPY (02/17/14) THERAPEUTIC EXERCISE TREATMENT OF MUSCULOSK UP BACK/UE (01/21/16) Family History: States: Unknown Family Hx - Social History Hx Tobacco Use: No Hx Alcohol Use: Yes Hx Substance Use: No - Immunization History Hx Tetanus Toxoid Vaccination: No Hx Influenza Vaccination: No Hx Pneumococcal Vaccination: No Review Of Systems Review Of Systems: ROS cannot be obtained secondary to pt's inabilty to answer questions. Physical Exam - Physical Exam Appears: Other (No spontaneous response) Skin: Warm, Other (Cellulitis to bilateral lower extremities) Head: Atraumatic, Normacephalic Neck: Trachea Midline, Supple, Other (7.[address]) Chest: Symmetrical Cardiovascular: Rhythm Regular Respiratory: No Rales, No Rhonchi, No Wheezing, Other (Lungs clear to auscul tation bilaterally) Gastrointestinal/Abdominal: Soft, No Tenderness, No Distention Extremity: Left: Other (Left humerus IO), Bilateral: Atraumatic Pulses: Left Radial: Normal, Right Radial: Normal Additional Physical Exam Comments: correction documents were reviewed, showing (+) left humerus fracture, unknown age. Per EMS, they were unaware of the humerus fracture. ED Course And Treatment - Laboratory Results Result Diagrams: 09/16/18 11:19 09/16/18 11:19 O2 Sat by Pulse Oximetry: 100 (on ventilator) Pulse Ox Interpretation: Normal Progress - Re-Evaluation Re-evaluation Note: 09/16/18 11:09 code heart activated. D/.W DR MEANS WILL ADMIT - Data Reviewed Data Reviewed: Lab, EKG, Old records - Critical Care Citical Care: Excluding Proc Time Critical Care Time: 30 minutes Medical Decision Making Medical Decision Making: Impression: Cardiac Arrest, Code Heart 11:00 Dr. Obando, code heart on-call, at bedside evaluating patient. 11:[address] Obando, who requests IV Heparin drip, 180mg Brilenta NG, and 300 mg Aspirin ME. Initial Plan: --EKG --Chest x-ray --Labs --Patient to be taken immediately to the central lab technician Disposition - Disposition Disposition: HOSPITALIZED Disposition Time: 11:10 Condition: CRITICAL - POA Present On Arrival: None Core Measure Indicators: Code Heart - Clinical Impression Clinical Impression: Cardiac arrest - Scribe Statement The provider has reviewed the documentation as recorded by the Scribe (Christina Quigley) Provider Attestation: All medical record entries made by the Scribe were at my direction and personally dictated by me. I have reviewed the chart and agree that the record accurately reflects my personal performance of the history, physical exam, medical decision making, and the department course for this patient. I have also personally directed, reviewed, and agree with the discharge instructions and disposition.
[2018-09-16] MEDS ORDERED: Iodixanol 320 MG/ML 200 ML BOTTLE IV ONE (11:17)
[2018-09-16 11:24] LABS: BASO # 0.2 K/uL (0.0-0.2); EOS # 0.1 K/uL (0.0-0.7); EOS % 0.9 % (0.0-4.0); HEMOGLOBIN 15.5 g/dL (12.0-18.0); LYMPH # 1.7 K/uL (1.0-4.3); LYMPH % 10.7 % (20.0-40.0); MEAN CELL VOLUME 93.6 fL (80.0-94.0); MEAN CORPUSCULAR HEMOGLOBIN 31.3 pg (27.0-31.0); MEAN CORPUSCULAR HGB CONC 33.4 g/dL (33.0-37.0); MEAN PLATELET VOLUME 9.4 fL (7.2-11.7); MONO # 0.4 K/uL (0.0-0.8); MONO % 2.4 % (0.0-10.0); NEUT # 13.7 K/uL (1.8-7.0); RBC 4.96 Mil/uL (4.40-5.90); RED CELL DISTRIBUTION WIDTH 12.9 % (11.5-14.5); WHITE BLOOD COUNT 16.1 K/uL (4.8-10.8)
[2018-09-16 11:32] LABS: INR 1.4
[2018-09-16 11:39] LABS: ALB/GLOB RATIO 1.2 (1.0-2.1); ALBUMIN 3.4 g/dL (3.5-5.0); ALT/SGPT 85 U/L (21-72); AST/SGOT 102 U/L (17-59); BLOOD UREA NITROGEN 15 mg/dL (9-20); CALCIUM 8.5 mg/dl (8.6-10.4); GFR NON-AFRICAN AMERICAN > 60
[2018-09-16] MEDS ORDERED: DOPamine 400mg/250ml D5W 400 MG/250 ML BAG IV ONE (12:41)
[2018-09-16] MEDS ORDERED: Heparin 25,000units in D5W 25,000 UNITS/250 ML BAG IV PRN (14:19)
[2018-09-16] MEDS ORDERED: HEPARIN IV PRN (14:24)
[2018-09-16] MEDS ORDERED: WATER IV PRN (14:24)
[2018-09-16] MEDS ORDERED: DEXTROSE 5% IV PRN (14:24)
[2018-09-16] MEDS ORDERED: Phenylephrine 30 MG in Sodium Chloride 0.9% 247 ML IV PRN (14:25)
[2018-09-16] MEDS ORDERED: Succinylcholine Chloride 20 mg/ml Syr (5 ml) IV ONE ×2 (14:29→14:51)
[2018-09-16] MEDS ORDERED: levETIRAcetam 500 MG in Sodium Chloride 0.9% 100 ML IVPB STA ×2 (14:29→16:05)
[2018-09-16] MEDS ORDERED: levETIRAcetam 500 MG in Sodium Chloride 0.9% 100 ML IVPB ONE ×2 (14:30→17:00)
[2018-09-16] MEDS ORDERED: Sodium Chloride 0.9% 1,000 ML IV SCH (14:45)
--- NOTE | 2018-09-16 14:58 | CP.PCM.CON ---
<Erasmo Watkins - Last Filed: 09/16/18 15:48> History of Present Illness - History of Present Illness History of Present Illness: PGY-1 ICU consult note for Dr. Palacios Patient is a 73 y/o male with PMHx of HTN, DM, CVA, s/p cardiac stent, brought in by ambulance for cardiac arrest. As per EMS, patient went into cardiac arrest at 9:53am witnessed at the [facility]. Patients friend who was bedside at the time noted patient was eating breakfast, at baseline, and began complaining of feeling funny then became unresponsive. At the [facility] patient was found in asystole, and CPR was initiated. Patient received 1 epi, after which rhythm converted to PEA, and ROSC was established at 10:14am. He also received versed 10mgs IVP, IVF 0.9 NSS 300ml in the field. Patient was spontaneously breathing en route as per EMS. ET tube placed and IO access established prior to arrival. On arrival patient is unresponsive, history and ROS reviewed but unobtainable from patient. No family at bedside. Patient was a code heart and brought into cardiac metallurgical laboratory assistant. PMH: CVA, HTN, NV, hep C, alcohol abuse PSH: cardiac stent Allergies: NKDA FH: Stroke and NV Social hx: former smoker, alcohol abuse Review of Systems - Review of Systems Systems not reviewed;Unavailable: Acuity of Condition Past Patient History - Infectious Disease Hx of Infectious Diseases: None - Tetanus Immunizations Tetanus Immunization: Unknown - Past Medical History & Family History Past Medical History?: No - Past Social History Smoking Status: Never Smoked - CARDIAC Hx Hypertension: Yes - PULMONARY Hx Respiratory Disorders: No Other/Comment: FORMER SMOKER - NEUROLOGICAL HX Cerebrovascular Accident: Yes (residula right side weakness) - HEENT Hx HEENT Problems: No - RENAL Hx Chronic Kidney Disease: No - ENDOCRINE/METABOLIC Hx Diabetes Mellitus Type 2: Yes - HEMATOLOGICAL/ONCOLOGICAL Hx Blood Disorders: No - INTEGUMENTARY Hx Dermatological Problems: No - MUSCULOSKELETAL/RHEUMATOLOGICAL Hx Fractures: Yes - GASTROINTESTINAL Hx Gastrointestinal Disorders: No - GENITOURINARY/GYNECOLOGICAL Hx Genitourinary Disorders: No - PSYCHIATRIC Hx Anxiety: Yes Hx Substance Use: No - SURGICAL HISTORY Hx Coronary Stent: Yes - ANESTHESIA Hx Anesthesia: Yes Hx Anesthesia Reactions: No Meds Allergies/Adverse Reactions: Allergies Allergy/AdvReac Type Severity Reaction Status Date / Time No Known Allergies Allergy Verified 09/16/18 11:00 - Medications Medications: Current Medications Aspirin (Aspirin Chewable) 81 mg PO DAILY [facility] Heparin Sodium/Sodium Chloride (Heparin 90619 Units/250ml 1/2 Normal Saline) 25,000 units in 250 mls @ 10.886 mls/hr IV .Q0M STA; Protocol Stop: 09/17/18 10:07 Last Admin: 09/16/18 11:18 Dose: 10.886 mls/hr Heparin Sodium (Porcine) 25, (000 units/ Dextrose) 505 mls @ 3 mls/hr IV .Q24H PRN; Protocol PRN Reason: ADJUST RATE PER PROTOCOL Levetiracetam 500 mg/ Sodium (Chloride) 105 mls @ 420 mls/hr IVPB STAT STA Stop: 09/16/18 14:43 Phenylephrine HCl 30 mg/ (Sodium Chloride) 250 mls @ 10 mls/hr IV .Q24H PRN; Protocol PRN Reason: TITRATE PER MD ORDER Cefazolin Sodium 1,000 mg/ (Sodium Chloride) 50 mls @ 100 mls/hr IVPB Q12H [facility]; Protocol Sodium Chloride (Sodium Chloride 0.9%) 1,000 mls @ 100 mls/hr IV .Q10H [facility] Pantoprazole Sodium (Protonix Inj) 40 mg IVP DAILY [facility] Rosuvastatin Calcium (Crestor) 40 mg PO HS [facility] Ticagrelor (Brilinta) 90 mg PO BID [facility] Physical Exam - Constitutional Appears: Other (Unresponsive, intubated) - Head Exam Head Exam: ATRAUMATIC, NORMOCEPHALIC - Eye Exam Eye Exam: Normal appearance - ENT Exam Additional comments: Epistaxis on left nostril - Respiratory Exam Additional comments: Patient is intubated on PVRC - Cardiovascular Exam Cardiovascular Exam: +S1, +S2. absent: REGULAR RHYTHM - GI/Abdominal Exam GI & Abdominal Exam: Soft Additional comments: Hematoma in suprapubic region - Extremities Exam Additional comments: Hematoma on right groin - Neurological Exam Additional comments: unresponsive - Skin Skin Exam: Dry, Pallor Results - Vital Signs Recent Vital Signs: Last Vital Signs Temp 97.9 F 09/16/18 11:18 Pulse 124 H 09/16/18 11:18 Resp 28 H 09/16/18 11:18 BP 113/88 09/16/18 11:18 Pulse Ox 100 09/16/18 11:44 - Labs Result Diagrams: 09/16/18 11:19 09/16/18 11:19 Labs: Laboratory Results - last 24 hr 09/16/18 09/16/18 09/16/18 11:03 11:19 11:19 WBC 16.1 H D RBC 4.96 Hgb 15.5 Hct 46.4 MCV 93.6 MCH 31.3 H MCHC 33.4 RDW 12.9 Plt Count 275 MPV 9.4 Neut % (Auto) 85.0 H Lymph % (Auto) 10.7 L Bureau % (Auto) 2.4 Eos % (Auto) 0.9 Baso % (Auto) 1.0 Neut # (Auto) 13.7 H Lymph # (Auto) 1.7 Bureau # (Auto) 0.4 Eos # (Auto) 0.1 Baso # (Auto) 0.2 PT 15.0 H INR 1.4 APTT 32 Sodium Potassium Chloride Carbon Dioxide Anion Gap BUN Creatinine Est GFR ( Amer) Est GFR (Non-Af Amer) POC Glucose (mg/dL) 145 H Random Glucose Calcium Total Bilirubin AST ALT Alkaline Phosphatase Troponin I Total Protein Albumin Globulin Albumin/Globulin Ratio Blood Type Antibody Screen 09/16/18 09/16/18 09/16/18 11:19 11:19 11:19 WBC RBC Hgb Hct MCV MCH MCHC RDW Plt Count MPV Neut % (Auto) Lymph % (Auto) Bureau % (Auto) Eos % (Auto) Baso % (Auto) Neut # (Auto) Lymph # (Auto) Bureau # (Auto) Eos # (Auto) Baso # (Auto) PT INR APTT Sodium 138 Potassium 3.8 Chloride 100 Carbon Dioxide 23 Anion Gap 19 BUN 15 Creatinine 1.1 Est GFR ( Amer) > 60 Est GFR (Non-Af Amer) > 60 POC Glucose (mg/dL) Random Glucose 158 H Calcium 8.5 L Total Bilirubin 0.7 AST 102 H D ALT 85 H D Alkaline Phosphatase 120 Troponin I 0.0900 Total Protein 6.2 L Albumin 3.4 L Globulin 2.8 Albumin/Globulin Ratio 1.2 Blood Type O POSITIVE Antibody Screen Negative Assessment & Plan - Assessment and Plan (Free Text) Assessment: Patient is a 73 y/o male with PMHx of HTN, DM, CVA, CAD s/p cardiac stent, brought in by ambulance for cardiac arrest. Patient was a code heart and s/p cardiac cath. Plan: Neuro: Anoxic brain injury - Patient is unresponsive - Neurology consulted, Dr. Briggs - Diannera 500mg IV BID Cardiovascular: Cardiac arrest - Patient was a code heart, s/p cardiac cath - On Impella heart pump - Cardiology consulted, Dr. Obando - Aspirin 81mg PO QD - Brilinta 90mg PO BID - Echo: f/u - EKG daily - Troponin: 0.09 - DANIELA panel Q12H - Crestor 40mg PO HS Hematoma s/p cardiac cath - Hold chemical anticoagulants - NS @ 100cc mls/hr - Type and crossmatch - Transfuse if Hb < 9 - Patient is on Phenylephrine drip - CBC, CMP, Coags Q12H Hx of HTN - Patient is on Phenylephrine drip - Hold antihypertensives due to hypotension Pulm: - No acute issues GI: Transaminitis - History of alcohol abuse - AST/ALT: 102/85 - Continue to monitor Renal: - No acute issues ID: Leukocytosis - WBC: 16.1 - Cefazolin 1g IV BID Prophylaxis: - Protonix 40mg IV QD - Hold VTE prophylaxis due to bleeding Case discussed with Dr. Philip Watkins, PGY-1 <Jefe Palacios S - Last Filed: 09/17/18 19:04> Results - Vital Signs Recent Vital Signs: Last Vital Signs Temp 97.2 F L 09/16/18 16:00 Pulse 35 L 09/16/18 18:06 Resp 0 L 09/16/18 18:06 BP 45/26 L 09/16/18 18:06 Pulse Ox 54 L 09/16/18 16:50 - Labs Result Diagrams: 09/16/18 15:11 09/16/18 15:11 Attending/Attestation - Attestation I have personally seen and examined this patient.: Yes I have fully participated in the care of the patient.: Yes I have reviewed all pertinent clinical information: Yes Notes (Text): 09/17/18 19:02 critical care time 60 minutes Patient is a 73 y/o male with PMHx of HTN, DM, CVA, CAD s/p cardiac stent, brought in by ambulance for cardiac arrest. Patient was a code heart and s/p cardiac cath And stent placement/Impala Patient in cardiogenic shock Started on pressors after triple-lumen catheter placed and right internal jugular vein under aseptic conditions On heparin drip initially related. Because of hematoma Patient did not respond and presented to cardiac arrest status post resuscitation without response
[2018-09-16 15:31] LABS: BASO # 0.1 K/uL (0.0-0.2); BASO % 0.2 % (0.0-2.0); EOS % 0.1 % (0.0-4.0); LYMPH # 1.2 K/uL (1.0-4.3); LYMPH % 4.3 % (20.0-40.0); MEAN CELL VOLUME 93.3 fL (80.0-94.0); MEAN CORPUSCULAR HEMOGLOBIN 30.7 pg (27.0-31.0); MEAN PLATELET VOLUME 9.7 fL (7.2-11.7); MONO # 1.4 K/uL (0.0-0.8); MONO % 5.1 % (0.0-10.0); NEUT # 24.4 K/uL (1.8-7.0); NEUT % 90.3 % (50.0-75.0); PLATELET COUNT 238 K/uL (130-400); RBC 3.87 Mil/uL (4.40-5.90); RED CELL DISTRIBUTION WIDTH 13.1 % (11.5-14.5)
[2018-09-16 15:35] LABS: HEMOGLOBIN 11.9 g/dL (12.0-18.0)
[2018-09-16 15:44] LABS: INR 1.8; PROTHROMBIN TIME 19.3 SECONDS (9.7-12.2)
[2018-09-16 15:48] LABS: ANISOCYTOSIS SLIGHT; HYPOCHROMIC SLIGHT; LYMPHOCYTE 1 % (20-40); MONOCYTE 4 % (0-10); NEUTROPHIL 95 % (50-75); PLATELET ESTIMATE NORMAL (NORMAL); POIKILOCYTOSIS SLIGHT; TOTAL CELLS COUNTED 100
[2018-09-16 15:49] LABS: BURR CELLS SLIGHT; LARGE PLATELETS PRESENT; OVALOCYTES SLIGHT
--- NOTE | 2018-09-16 15:49 | CP.PCM.CON ---
History of Present Illness - History of Present Illness History of Present Illness: 73 M presented to [facility] ER with cardiac arrest Asystole resiscitated and now LBBB In cardiogenic shock and intubated Unresponsive to commands No family around. Due to cardiac arrest and cardiogenic shock administratively (two attendings) decided to take the patient to cardiac cath rn S/P Cath: Triple vessel CAD with culprit LAD 99% lesion Stented patient in cardiogenic shock with EDP 35-40mmHg EF 10% Impella heart pump inserted to support the heart Post Cardia arrest/Cardiogenic shock/Impella care Patient transferred to ICU Past Patient History - Infectious Disease Hx of Infectious Diseases: None - Tetanus Immunizations Tetanus Immunization: Unknown - Past Medical History & Family History Past Medical History?: No - Past Social History Smoking Status: Never Smoked - CARDIAC Hx Hypertension: Yes - PULMONARY Hx Respiratory Disorders: No Other/Comment: FORMER SMOKER - NEUROLOGICAL HX Cerebrovascular Accident: Yes (residula right side weakness) - HEENT Hx HEENT Problems: No - RENAL Hx Chronic Kidney Disease: No - ENDOCRINE/METABOLIC Hx Diabetes Mellitus Type 2: Yes - HEMATOLOGICAL/ONCOLOGICAL Hx Blood Disorders: No - INTEGUMENTARY Hx Dermatological Problems: No - MUSCULOSKELETAL/RHEUMATOLOGICAL Hx Fractures: Yes - GASTROINTESTINAL Hx Gastrointestinal Disorders: No - GENITOURINARY/GYNECOLOGICAL Hx Genitourinary Disorders: No - PSYCHIATRIC Hx Anxiety: Yes Hx Substance Use: No - SURGICAL HISTORY Hx Coronary Stent: Yes - ANESTHESIA Hx Anesthesia: Yes Hx Anesthesia Reactions: No Meds Allergies/Adverse Reactions: Allergies Allergy/AdvReac Type Severity Reaction Status Date / Time No Known Allergies Allergy Verified 09/16/18 11:00 - Medications Medications: Current Medications Aspirin (Aspirin Chewable) 81 mg PO DAILY [facility] Heparin Sodium/Sodium Chloride (Heparin 56789 Units/250ml 1/2 Normal Saline) 25,000 units in 250 mls @ 10.886 mls/hr IV .Q0M STA; Protocol Stop: 09/17/18 10:07 Last Admin: 09/16/18 11:18 Dose: 10.886 mls/hr Heparin Sodium (Porcine) 25, (000 units/ Dextrose) 505 mls @ 3 mls/hr IV .Q24H PRN; Protocol PRN Reason: ADJUST RATE PER PROTOCOL Levetiracetam 500 mg/ Sodium (Chloride) 105 mls @ 420 mls/hr IVPB STAT STA Stop: 09/16/18 14:43 Phenylephrine HCl 30 mg/ (Sodium Chloride) 250 mls @ 10 mls/hr IV .Q24H PRN; Protocol PRN Reason: TITRATE PER MD ORDER Cefazolin Sodium 1,000 mg/ (Sodium Chloride) 100 mls @ 100 mls/hr IVPB Q12H [facility]; Protocol Sodium Chloride (Sodium Chloride 0.9%) 1,000 mls @ 100 mls/hr IV .Q10H [facility] Pantoprazole Sodium (Protonix Inj) 40 mg IVP DAILY [facility] Rosuvastatin Calcium (Crestor) 40 mg PO HS [facility] Ticagrelor (Brilinta) 90 mg PO BID [facility] Results - Vital Signs Recent Vital Signs: Last Vital Signs Temp 97.9 F 09/16/18 11:18 Pulse 124 H 09/16/18 11:18 Resp 28 H 09/16/18 11:18 BP 113/88 09/16/18 11:18 Pulse Ox 100 09/16/18 11:44 - Labs Result Diagrams: 09/16/18 15:11 09/16/18 11:19 Labs: Laboratory Results - last 24 hr 09/16/18 09/16/18 09/16/18 11:03 11:19 11:19 WBC 16.1 H D RBC 4.96 Hgb 15.5 Hct 46.4 MCV 93.6 MCH 31.3 H MCHC 33.4 RDW 12.9 Plt Count 275 MPV 9.4 Neut % (Auto) 85.0 H Lymph % (Auto) 10.7 L Yates % (Auto) 2.4 Eos % (Auto) 0.9 Baso % (Auto) 1.0 Neut # (Auto) 13.7 H Lymph # (Auto) 1.7 Yates # (Auto) 0.4 Eos # (Auto) 0.1 Baso # (Auto) 0.2 PT 15.0 H INR 1.4 APTT 32 Sodium Potassium Chloride Carbon Dioxide Anion Gap BUN Creatinine Est GFR ( Amer) Est GFR (Non-Af Amer) POC Glucose (mg/dL) 145 H Random Glucose Calcium Total Bilirubin AST ALT Alkaline Phosphatase Troponin I Total Protein Albumin Globulin Albumin/Globulin Ratio Blood Type Antibody Screen 09/16/18 09/16/18 09/16/18 11:19 11:19 11:19 WBC RBC Hgb Hct MCV MCH MCHC RDW Plt Count MPV Neut % (Auto) Lymph % (Auto) Yates % (Auto) Eos % (Auto) Baso % (Auto) Neut # (Auto) Lymph # (Auto) Yates # (Auto) Eos # (Auto) Baso # (Auto) PT INR APTT Sodium 138 Potassium 3.8 Chloride 100 Carbon Dioxide 23 Anion Gap 19 BUN 15 Creatinine 1.1 Est GFR ( Amer) > 60 Est GFR (Non-Af Amer) > 60 POC Glucose (mg/dL) Random Glucose 158 H Calcium 8.5 L Total Bilirubin 0.7 AST 102 H D ALT 85 H D Alkaline Phosphatase 120 Troponin I 0.0900 Total Protein 6.2 L Albumin 3.4 L Globulin 2.8 Albumin/Globulin Ratio 1.2 Blood Type O POSITIVE Antibody Screen Negative 09/16/18 09/16/18 15:11 15:11 WBC 27.0 H D RBC 3.87 L Hgb 11.9 L D Hct 36.1 MCV 93.3 MCH 30.7 MCHC 33.0 RDW 13.1 Plt Count 238 MPV 9.7 Neut % (Auto) 90.3 H Lymph % (Auto) 4.3 L Yates % (Auto) 5.1 Eos % (Auto) 0.1 Baso % (Auto) 0.2 Neut # (Auto) 24.4 H Lymph # (Auto) 1.2 Yates # (Auto) 1.4 H Eos # (Auto) 0.0 Baso # (Auto) 0.1 PT 19.3 H INR 1.8 APTT Sodium Potassium Chloride Carbon Dioxide Anion Gap BUN Creatinine Est GFR ( Amer) Est GFR (Non-Af Amer) POC Glucose (mg/dL) Random Glucose Calcium Total Bilirubin AST ALT Alkaline Phosphatase Troponin I Total Protein Albumin Globulin Albumin/Globulin Ratio Blood Type Antibody Screen
[2018-09-16 16:03] LABS: ALB/GLOB RATIO 0.9 (1.0-2.1); ALBUMIN 2.5 g/dL (3.5-5.0); ALT/SGPT 60 U/L (21-72); AST/SGOT 127 U/L (17-59); BLOOD UREA NITROGEN 20 mg/dL (9-20); CALCIUM 7.3 mg/dl (8.6-10.4); GFR NON-AFRICAN AMERICAN 60
[2018-09-16 16:18] LABS: CK-MB 7.99 ng/mL (0.0-3.38)
[2018-09-16 16:23] VITALS: TEMP 97.2
--- NOTE | 2018-09-16 16:33 | CP.PCM.PN ---
Subjective - Date & Time of Evaluation Date of Evaluation: 09/16/18 Time of Evaluation: 11:05 - Subjective Subjective: Code Heart was called at 11:05am. Patient was brought by EMS from the correction, [facility]. Per EMS, patient went into cardiac arrest at 9:53am at the correction. Patient was intubated in the field. ROS was unattainable on arrival. Wind Power Project Manager, Dr. Obando was notified. Patient was given Aspirin, Brillinta, heparin bolus and started on a heparin drip. Patient was transferred to the chemical laboratory assistant with monitor at 11:18am. Objective - Vital Signs/Intake and Output Vital Signs (last 24 hours): Temp Pulse Resp BP Pulse Ox 97.2 F L 121 H 29 H 104/83 70 L 09/16/18 13:45 09/16/18 15:00 09/16/18 15:00 09/16/18 15:00 09/16/18 15:00 Intake and Output: 09/16/18 09/16/18 06:59 18:59 Intake Total 61 Balance 61 - Medications Medications: Current Medications Aspirin (Aspirin Chewable) 81 mg PO DAILY [facility] Heparin Sodium/Sodium Chloride (Heparin 10185 Units/250ml 1/2 Normal Saline) 25,000 units in 250 mls @ 10.886 mls/hr IV .Q0M STA; Protocol Stop: 09/17/18 10:07 Last Admin: 09/16/18 11:18 Dose: 10.886 mls/hr Heparin Sodium (Porcine) 25, (000 units/ Dextrose) 505 mls @ 3 mls/hr IV .Q24H PRN; Protocol PRN Reason: ADJUST RATE PER PROTOCOL Phenylephrine HCl 30 mg/ (Sodium Chloride) 250 mls @ 10 mls/hr IV .Q24H PRN; Protocol PRN Reason: TITRATE PER MD ORDER Last Titration: 09/16/18 15:45 Dose: 180 mcg/min, 90 mls/hr Cefazolin Sodium 1,000 mg/ (Sodium Chloride) 100 mls @ 100 mls/hr IVPB Q12H [facility]; Protocol Sodium Chloride (Sodium Chloride 0.9%) 1,000 mls @ 100 mls/hr IV .Q10H [facility] Last Admin: 09/16/18 15:53 Dose: 100 mls/hr Levetiracetam 500 mg/ Sodium (Chloride) 105 mls @ 420 mls/hr IVPB Q12H [facility] Levetiracetam 500 mg/ Sodium (Chloride) 105 mls @ 420 mls/hr IVPB ONCE ONE Stop: 09/16/18 17:14 Pantoprazole Sodium (Protonix Inj) 40 mg IVP DAILY [facility] Rosuvastatin Calcium (Crestor) 40 mg PO HS [facility] Ticagrelor (Brilinta) 90 mg PO BID [facility] - Labs Labs: 09/16/18 15:11 09/16/18 15:11 PT 19.3 SECONDS (9.7-12.2) H 09/16/18 15:11 INR 1.8 09/16/18 15:11 APTT 157 SECONDS (21-34) H* D 09/16/18 15:11
[2018-09-16] MEDS ORDERED: Sodium Chloride 0.9% 1,000 ML IV ONE (16:38)
[2018-09-16 17:26] LABS: ABG ALLEN TEST UNABLE; ARTERIAL BLOOD GAS HCO3 7.6 mmol/L (21-28); ARTERIAL BLOOD GAS O2 SAT 100.9 % (95-98); ARTERIAL BLOOD GAS PCO2 26 mm/Hg (35-45); ARTERIAL BLOOD GAS PH 7.04 (7.35-7.45); ARTERIAL BLOOD GAS PO2 347 mm/Hg (80-100); ARTERIAL BLOOD GAS TCO2 7.8 mmol/L (22-28)
[2018-09-16] MEDS ORDERED: Sodium Bicarbonate (8.4%) 50 Meq Syringe IVP STA ×2 (17:30→17:35)
[2018-09-16] MEDS ORDERED: Sodium Bicarbonate (8.4%) 50 Meq Syringe ONE (17:31)
--- NOTE | 2018-09-16 18:25 | CP.PCM.PRO ---
Pronouncement of Note - Clinical Findings Physical Exam: No Response Verbal/Painful Stimuli, Absent Peripheral Puls es{Carotid & Femoral}, Absent Heart & Breath Sounds, No Pupillary Light Reflex, No Corneal Reflex, Pupils Fixed & Dilated, Absence of Vital Signs - Pronouncement Time Time of Pronouncement of : 18:12 - Notifications Pronouncement Notifications: Family Notified, Atending Notified Photography Manager Notified: Yes - Autopsy Autopsy Requested: No - [place] [id number]
--- NOTE | 2018-09-16 18:49 | PCM.RRT ---
CLIENT PROGRAM MANAGER Nurses Assessment - Situation Date: 09/16/18 Time CLIENT PROGRAM MANAGER was called: 17:36 CLIENT PROGRAM MANAGER Responder Arrival Time:: 17:36 CLIENT PROGRAM MANAGER Location:: 9I ICU Room Number: 10 CLIENT PROGRAM MANAGER Reason for Call: Not Responding to Urgent Treatment (Code Blue) CLIENT PROGRAM MANAGER Called By: RN - Ventilator Settings Mode: PRVC Ventilator Respiratory Rate Settin Ventilator Tidal Volume Settin PEEP/CPAP (cm H2O): 5 FIO2 (% Oxygen): 100 - Neurological Status (Select all that apply): absent: Alert, Responsive - Respiratory Oxygen Delivery Method: Intubated - Constitutional Appears: Other (Unresponsive) - Head Head Exam: ATRAUMATIC, NORMOCEPHALIC - Respiratory Exam Additional comments: Patient intubated on PRVC - Cardiovascular Exam Additional comments: No pulse - GI/Abdominal Exam GI & Abdominal Exam: Soft Plan - Assessment of Findings&Treatment Plan Meron murray was called at 17:36 for cardiac arrest - Started CPR - 6 X Epinephrine given every 2 minutes - Pt went into V-tach and shocked once - No pulse found - Patient 18:12 09/16/2018 - Physician and family member notified - methods examiner contacted See pronouncement of note
[2018-09-16 19:41] VITALS: BP 45/26; PULSE 35; RESP 0; O2SAT 54
[2018-09-17] MEDS ORDERED: levETIRAcetam 500 MG in Sodium Chloride 0.9% 100 ML IVPB SCH (04:30)
--- NOTE | 2018-09-17 23:54 | CARD ---
APPROVED REPORT Date of service: 09/16/2018 EKG Measurement Heart [id number] <Conclusion> Atrial fibrillation with rapid ventricular response with premature ventricular or aberrantly conducted complexes Left axis deviation Left bundle branch block Abnormal ECG
--- NOTE | 2018-09-22 02:41 | CARDCATH ---
PROCEDURE DATE: 09/16/2018 PROCEDURES: 1. Left heart catheterization. 2. Coronary angiogram. 3. Left anterior descending coronary artery balloon angioplasty and drug-eluting stent placement. 4. Impella heart pump insertion. REFERRING PHYSICIAN: Joel Ryan DO PERFORMING PHYSICIAN: Cricket Obando MD CLINICAL INDICATIONS: 1. Cardiac arrest. 2. Code heart. 3. Acute anterior wall ST-elevation myocardial infarction. 4. Cardiogenic shock. 5. Hypotension. 6. Coronary artery disease. 7. Hyperlipidemia. 8. Coronary artery disease. 9. Peripheral arterial disease. BRIEF CLINICAL HISTORY: Que Cisse is a 73-year-old living in the care home. The patient was found unresponsive. When the EMS arrived, the patient was in asystole. EMS was able to regain the rhythm after injection of epinephrine. The patient was brought to [facility] in an unresponsive state. The patient was intubated, and pressors were started. Initial EKG has shown acute anterior wall ST-elevation myocardial infarction. Code heart was activated. Since the patient could not consent, two attendings signed for the consent for the cardiac cath procedure. The patient was willing to cardiac open hearth laborer. A 6-[place] Island[place] sheath was introduced into right common femoral artery. Left main coronary artery was engaged using 6-[place] XB LAD 3.5 guide catheter. The patient was preloaded with aspirin, Brilinta, and IV heparin. ACT was maintained about 250. Initial left coronary angiogram revealed patent left main coronary artery. LAD has a proximal 99%, mid 99% stenotic lesions. Diagonal branches are patent. Left circumflex is patent. Obtuse marginal 1 has 80% stenosis. LAD threaded with run-through coronary wire. The lesions were predilated using 2.5 x 15 compliant balloon. Both the LAD lesions were stented using 3.0 x 34 and 3.5 x 18 Resolute Alejandro drug-eluting stents. Overlap was post dilated with a stent balloon. Excellent final angiographic results with brisk ANNAMARIE-3 flow noted in the LAD. However, the patient was still hypotensive. Pigtail inserted into left ventricle across the aortic valve. LVEDP was measured. EDP was 35. LV angiogram has revealed dilated diffuse hypokinesis of the left ventricle. Estimated ejection fraction was only 10%. Catheter was pulled back across the aortic valve. There was no gradient across the aortic valve. Then, the catheter was exchanged to JR4 6-[place] Islander diagnostic catheter. Right coronary angiogram revealed mid right coronary artery 80% to 85% concentric stenosis. Ostial right coronary artery has 60% stenosis. Since the patient is hypotensive and LV ejection fraction is only 10%, decided to support the heart with Impella heart pump. Impella heart pump was inserted through the left groin. The patient was maintained on heparin IV. IMPRESSION: The patient presented with cardiogenic shock and acute anterior wall ST-elevation myocardial infarction. Impella heart pump was inserted to support the left ventricle. Successful left anterior descending artery intervention. Continue IV heparin, aspirin, and Brilinta. The patient will be transferred to intensive care unit. Cricket Obando MD
== END 2018-09-16 21:10 | DRG 215 ==
LOC: C.ER 10:57 → C.9I 11:12
PROVIDERS: ADMIT Internal Medicine Pulmonary Disease; ATTEND Internal Medicine Pulmonary Disease
PROC: 0BH17EZ Insertion of Endotracheal Airway into Trachea, Via Natural or Artificial Opening (ICD-10-PCS; principal; 2018-09-16)
PROC: 5A1945Z Respiratory Ventilation, 24-96 Consecutive Hours (ICD-10-PCS; 2018-09-16)
PROC: 02HA3RZ Insertion of Short-term External Heart Assist System into Heart, Percutaneous Approach (ICD-10-PCS; 2018-09-16)
PROC: 027034Z Dilation of Coronary Artery, One Artery with Drug-eluting Intraluminal Device, Percutaneous Approach (ICD-10-PCS; 2018-09-16)
PROC: 5A0221D Assistance with Cardiac Output using Impeller Pump, Continuous (ICD-10-PCS; 2018-09-16)
PROC: 4A023N7 Measurement of Cardiac Sampling and Pressure, Left Heart, Percutaneous Approach (ICD-10-PCS; 2018-09-16)
PROC: B2151ZZ Fluoroscopy of Left Heart using Low Osmolar Contrast (ICD-10-PCS; 2018-09-16)
PROC: B2111ZZ Fluoroscopy of Multiple Coronary Arteries using Low Osmolar Contrast (ICD-10-PCS; 2018-09-16)
DX: I21.09 ST elevation (STEMI) myocardial infarction involving other coronary artery of anterior wall (principal); I69.351 Hemiplegia and hemiparesis following cerebral infarction affecting right dominant side; I25.10 Atherosclerotic heart disease of native coronary artery without angina pectoris; R57.0 Cardiogenic shock; I44.7 Left bundle-branch block, unspecified; I10 Essential (primary) hypertension; E11.9 Type 2 diabetes mellitus without complications; Z87.891 Personal history of nicotine dependence; Z95.5 Presence of coronary angioplasty implant and graft; Z79.4 Long term (current) use of insulin